=== PATIENT | female | born 1980 | race Caucasian/White ===

== ENCOUNTER 2017-11-06 16:55 | Emergency (ER) | payer BC, SELFPAY ==
--- NOTE | 2017-11-06 17:49 | XR_ITS ---
XR hand RT min 3V Ordering Physician: Evans Cuellar MD Patient Age: 37 years: Female HISTORY: ITS.REASON: Injury Injury to the right third finger TECHNIQUE: 3 views right hand COMPARISON :None available FINDINGS Phalanx with pain and swelling. No discrete fracture nor dislocation. There is pronounced flexion at the proximal IP joint of third finger in with this apparently patient could not straighten finger. L is not on the submitted images by technologist. With this the finger is optimally visualized in the frontal projection but there is no good evidence of fracture or dislocation is seen on these submitted frontal oblique or lateral view. Images. There is suggestion of soft tissue swelling at the third finger. The fingers appear intact. Metacarpals intact. The cartilage is unremarkable. =====IMPRESSION: ======== 1. Prominent flexion at the PIP joint of the long finger. 2...Presumed the patient could not straighten finger for the frontal projection... thus frontal projection limited but show no good evidence of fracture nor dislocation.
[2017-11-06 17:51] VITALS: BP 159/100; PULSE 104; RESP 20; TEMP 37.1; O2SAT 100; BMI 30.9
--- NOTE | 2017-11-06 18:37 | HMH.EDUTC ---
[facility] [place] Disposition Clinical Impression: Finger injury Qualifiers: Encounter type: initial encounter Laterality: right Qualified Code(s): S69.91XA - Unspecified injury of right wrist, hand and finger(s), initial encounter Disposition: Still a Patient Condition on Discharge: Good Additional Instructions: Transfer to ER for further treatment and evaluation Referrals: Carlos Valderrama MD [Primary Care Provider] - Time of Disposition: 18:54 Medical Decision Making - Medical Records Medical records reviewed: Yes: I reviewed the patient's medical records. - Hasmukh Inquiry Pt receiving controlled substance: No Hasmukh was queried for this patient: No Vital Signs: 11/06/17 17:51 Temperature 98.8 F Temperature Source Temporal Artery Scan Pulse Rate [Left] 104 H Respiratory Rate 20 Blood Pressure [Left Arm] 159/100 Blood Pressure Mean [Left Arm] 119 Blood Pressure Source [Left Arm] Automatic Cuff Blood Pressure Position [Left Arm] Sitting 02 Sat by Pulse Oximetry 100 Oxygen Delivery Method Room Air Orders (Tests/Meds): ORDERS Category Date Time Status XR hand RT min 3V Stat Exams 11/06/17 17:49 Taken - Radiology Data #1 Image(s): Hand Image Reviewed: Yes I reviewed the patient's radiology image w/the ED provider Preliminary Findings: No Fracture Seen - Reevaluation(s) Time: 18:45 Reevaluation #1: Consulted with Dr Cuellar and he observed and evaluated finger and agreed that patient needed to be transfered to ER for further treatment and evaluation [facility] [place] HPI - General Stated complaint: AO 11/06/17 @ 1615 Inj to right middle finger Time Seen by Provider: 11/06/17 18:20 Mode of Arrival: Ambulatory Source of Information: Patient Limitations: No Limitations Description of Symptoms (Recalled from Triage Doc. by RN): RIGHT MIDDLE FINGER INJURY HEENT Symptoms (Recalled from RN notes): No Resp Symptoms (Recalled from RN notes): No Skin Symptoms (Recalled from RN notes): No MS Symptoms (Recalled from RN notes): Yes Functional Status (Recalled from RN notes): N - History of Present Illness Provider Complaint: Patient state that she was walking her dog earlier when her dog and another dog started to fight and it twisted her middle finger States that ever since she has been unable to straighten her middle finger States that pain and swelling has continued to get worse. State that she can move finger up and down just unable to straighten it - Related Data Allergies Allergy/AdvReac Type Severity Reaction Status Date / Time No Known Allergies Allergy Verified 11/06/17 17:54 - Worker's Comp Is this a Worker's Comp case?: No [facility] History I have reviewed the patient's past medical history: Yes Laterality Cases: Bilateral: Tonsillectomy - Social History Alcohol Intake: never - Psychiatric History Expresses thoughts of harming self/others: None Suicide Plan Description: No Plan ROS Obtained: Yes All systems reviewed & no additional complaints Physical Exam - General General appearance: alert, in no apparent distress - ENT ENT exam: Present: normal exam - Respiratory Respiratory exam: Present: normal lung sounds bilaterally. Absent: respiratory distress - Cardiovascular Cardiovascular exam: Present: regular rate - Abdominal Exam Abdominal exam: Present: soft, normal bowel sounds. Absent: distention, tenderness, guarding - Expanded Upper Extremity Exam Right Hand exam: Present: other (pain in ring finger and right middle finger bent at the joint and swollen state that she is unable to move or straighten finger) - Neurological Exam Neurological exam: Present: alert, oriented X3
--- NOTE | 2017-11-06 18:45 | ED_ITS ---
[facility] [place] Clinical Impression: Finger injury Qualifiers: Encounter type: initial encounter Laterality: right Qualified Code(s): S69.91XA - Unspecified injury of right wrist, hand and finger(s), initial encounter Disposition: Still a Patient Condition on Discharge: Good Additional Instructions: Transfer to ER for further treatment and evaluation Referrals: Carlos Valderrama MD [Primary Care Provider] - Time of Disposition: 18:54 Medical Decision Making - Medical Records Medical records reviewed: Yes: I reviewed the patient's medical records. - Hasmukh Inquiry Pt receiving controlled substance: No Hasmukh was queried for this patient: No Vital Signs: 11/06/17 17:51 Temperature 98.8 F Temperature Source Temporal Artery Scan Pulse Rate [Left] 104 H Respiratory Rate 20 Blood Pressure [Left Arm] 159/100 Blood Pressure Mean [Left Arm] 119 Blood Pressure Source [Left Arm] Automatic Cuff Blood Pressure Position [Left Arm] Sitting 02 Sat by Pulse Oximetry 100 Oxygen Delivery Method Room Air Orders (Tests/Meds): ORDERS Category Date Time Status XR hand RT min 3V Stat Exams 11/06/17 17:49 Taken - Radiology Data #1 Image(s): Hand Image Reviewed: Yes I reviewed the patient's radiology image w/the ED provider Preliminary Findings: No Fracture Seen - Reevaluation(s) Time: 18:45 Reevaluation #1: Consulted with Dr Cuellar and he observed and evaluated finger and agreed that patient needed to be transfered to ER for further treatment and evaluation [facility] [place]PI - General Stated complaint: AO 11/06/17 @ 1615 Inj to right middle finger Time Seen by Provider: 11/06/17 18:20 Mode of Arrival: Ambulatory Source of Information: Patient Limitations: No Limitations Description of Symptoms (Recalled from Triage Doc. by RN): RIGHT MIDDLE FINGER INJURY HEENT Symptoms (Recalled from RN notes): No Resp Symptoms (Recalled from RN notes): No Skin Symptoms (Recalled from RN notes): No MS Symptoms (Recalled from RN notes): Yes Functional Status (Recalled from RN notes): N - History of Present Illness Provider Complaint: Patient state that she was walking her dog earlier when her dog and another dog started to fight and it twisted her middle finger States that ever since she has been unable to straighten her middle finger States that pain and swelling has continued to get worse. State that she can move finger up and down just unable to straighten it - Related Data Allergies Allergy/AdvReac Type Severity Reaction Status Date / Time No Known Allergies Allergy Verified 11/06/17 17:54 - Worker's Comp Is this a Worker's Comp case?: No [facility] History I have reviewed the patient's past medical history: Yes Laterality Cases: Bilateral: Tonsillectomy - Social History Alcohol Intake: never - Psychiatric History Expresses thoughts of harming self/others: None Suicide Plan Description: No Plan ROS Obtained: Yes All systems reviewed & no additional complaints Physical Exam - General General appearance: alert, in no apparent distress - ENT ENT exam: Present: normal exam - Respiratory Respiratory exam: Present: normal lung sounds bilaterally. Absent: respiratory distress - Cardiovascular Cardiovascular exam: Present: regular rate - Abdominal Exam A
[2017-11-06 18:50] VITALS: BP 169/101; PULSE 89; RESP 18; TEMP 36.6; O2SAT 97; BMI 29.9
--- NOTE | 2017-11-06 19:06 | PC.NURSE ---
speaking with the intake nurse for Natalya
--- NOTE | 2017-11-06 19:12 | HMH.EDUPEXT ---
ED Disposition Clinical Impression: Injury of ligament of right hand Disposition: Home, Self-Care Condition on Discharge: Good Instructions: DI for Ligament Sprains Additional Instructions: Please follow-up with Dr. Edouard at the office at 9 AM, tomorrow, fasting. Referrals: Stephanie Edouard [Referring] - - Critical Care Critical Care Time: No Attestation: On 11/06/17, the high probability of a clinically significant, sudden or life threatening deterioration of the following system(s) required my full and direct attention, intervention and personal management. The time I documented below is in addition to time spent performing reported procedures but includes the following listed in this critical care notation. Medical Decision Making - Medical Records Medical records reviewed: Yes: I reviewed the patient's medical records. - Hasmukh Inquiry Pt receiving controlled substance: No Vital Signs: 11/06/17 17:51 11/06/17 18:50 Temperature 98.8 F 97.8 F Temperature Source Temporal Artery Scan Oral Pulse Rate [Left] 104 H 89 Respiratory Rate 20 18 Blood Pressure [Left Arm] 159/100 169/101 Blood Pressure Mean [Left Arm] 119 123 Blood Pressure Source [Left Arm] Automatic Cuff Automatic Cuff Blood Pressure Position [Left Arm] Sitting Sitting 02 Sat by Pulse Oximetry 100 97 Oxygen Delivery Method Room Air Room Air Orders (Tests/Meds): ED MEDICATIONS Discontinued Medications Generic Name Dose Route Start Last Admin Trade Name Freq PRN Reason Stop Dose Admin Tramadol HCl 1 mily 11/06/17 19:20 Ultram Take Home Pack 50mg (10) PO 11/06/17 19:21 ONCE ONE ORDERS Category Date Time Status XR hand RT min 3V Stat Exams 11/06/17 17:49 Taken - Radiology Data #1 Image(s): Hand (right hand) Image Reviewed: Yes I reviewed the patient's radiology results, Yes I reviewed the patient's radiology image w/the ED provider Preliminary Findings: Normal/NAD no acute fracture - Physician Consults Physician Consulted: Dr Edouard Time: 19:15 Reason -: Pt condition, Orthopedic Eval/Care Comment/Response: Discussed with Lianet at [employer], who paged Dr. Stephanie Edouard's intake nurse, Shira. Shira, advise of patient's findings and treatment so far, agreeable with patient being seen at the office at 9 AM tomorrow morning, fasting. - Reevaluation(s) Time: 19:25 Reevaluation #1: Patient appears medically stable, in minimal distress, understands instructions, as well as necessity to see the hand specialist in the morning. Upper Extremity HPI - General Chief Complaint: Extremity Injury, Upper Stated Complaint: AO 11/06/17 @ 1615 Inj to right middle finger Time Seen by Provider: 11/06/17 18:20 Mode of Arrival: Ambulatory Source of Information: Patient Limitations: No Limitations Description of Symptoms (Recalled from ER Triage Doc. by RN): RIGHT MIDDLE FINGER INJURY - History of Present Illness HPI narrative: Patient is a 37-year-old female presenting to the emergency room with right middle finger injury after breaking up a fight between her dog and 2 other dogs, around 3 PM today. Patient was holding her dog by the collar and twisted her right middle finger while trying to pull the dog from the fight with the other docs. Patient is here complaining with pain and swelling of the right third finger. MD complaint: injury to: right Onset (ago): hour(s) (4) Other Extremity Injury: Right: hand Other injuries: none Handedness: right Place: home Severity: moderate Severity scale (1-10): 4 Exacerbating factors: movement of extremity Context: injury Associated symptoms: denies other symptoms - Related Data Allergies Allergy/AdvReac Type Severity Reaction Status Date / Time No Known Allergies Allergy Verified 11/06/17 17:54 [facility] History I have reviewed the patient's past medical history: Yes Laterality Cases: Bilateral: Tonsillectomy - Social Hi
--- NOTE | 2017-11-06 19:17 | ED_ITS ---
ED Disposition Clinical Impression: Injury of ligament of right hand Disposition: Home, Self-Care Condition on Discharge: Good Instructions: DI for Ligament Sprains Additional Instructions: Please follow-up with Dr. Edouard at the office at 9 AM, tomorrow, fasting. Referrals: Stephanie Edouard [Referring] - - Critical Care Critical Care Time: No Attestation: On 11/06/17, the high probability of a clinically significant, sudden or life threatening deterioration of the following system(s) required my full and direct attention, intervention and personal management. The time I documented below is in addition to time spent performing reported procedures but includes the following listed in this critical care notation. Medical Decision Making - Medical Records Medical records reviewed: Yes: I reviewed the patient's medical records. - Hasmukh Inquiry Pt receiving controlled substance: No Vital Signs: 11/06/17 17:51 11/06/17 18:50 Temperature 98.8 F 97.8 F Temperature Source Temporal Artery Scan Oral Pulse Rate [Left] 104 H 89 Respiratory Rate 20 18 Blood Pressure [Left Arm] 159/100 169/101 Blood Pressure Mean [Left Arm] 119 123 Blood Pressure Source [Left Arm] Automatic Cuff Automatic Cuff Blood Pressure Position [Left Arm] Sitting Sitting 02 Sat by Pulse Oximetry 100 97 Oxygen Delivery Method Room Air Room Air Orders (Tests/Meds): ED MEDICATIONS Discontinued Medications Generic Name Dose Route Start Last Admin Trade Name Freq PRN Reason Stop Dose Admin Tramadol HCl 1 mily 11/06/17 19:20 Ultram Take Home Pack 50mg (10) PO 11/06/17 19:21 ONCE ONE ORDERS Category Date Time Status XR hand RT min 3V Stat Exams 11/06/17 17:49 Taken - Radiology Data #1 Image(s): Hand (right hand) Image Reviewed: Yes I reviewed the patient's radiology results, Yes I reviewed the patient's radiology image w/the ED provider Preliminary Findings: Normal/NAD no acute fracture - Physician Consults Physician Consulted: Dr Edouard Time: 19:15 Reason -: Pt condition, Orthopedic Eval/Care Comment/Response: Discussed with Lianet at [employer], who paged Dr. Stephanie Edouard's intake nurse, Shira. Shira, advise of patient's findings and treatment so far, agreeable with patient being seen at the office at 9 AM tomorrow morning, fasting. - Reevaluation(s) Time: 19:25 Reevaluation #1: Patient appears medically stable, in minimal distress, understands instructions , as well as necessity to see the hand specialist in the morning. Upper Extremity HPI - General Chief Complaint: Extremity Injury, Upper Stated Complaint: AO 11/06/17 @ 1615 Inj to right middle finger Time Seen by Provider: 11/06/17 18:20 Mode of Arrival: Ambulatory Source of Information: Patient Limitations: No Limitations Description of Symptoms (Recalled from ER Triage Doc. by RN): RIGHT MIDDLE FINGER INJURY - History of Present Illness HPI narrative: Patient is a 37-year-old female presenting to the emergency room with right middle finger injury after breaking up a fight between her dog and 2 other dogs , around 3 PM today. Patient was holding her dog by the collar and twisted her right middle finger while trying to pull the dog from the fight with the other docs. Patient is here complaining wi
[2017-11-06 19:31] VITALS: BP 160/97; PULSE 97; RESP 16; TEMP 36.8; O2SAT 98
== END 2017-11-06 19:33 | disposition home or self-care (01) ==
LOC: UTC 17:00 → ER 18:48
PROVIDERS: Emergency Provider Emergency Medicine; Family Provider Family Medicine; PCP Family Medicine
DX: S69.91XA Unspecified injury of right wrist, hand and finger(s), initial encounter (principal); Y04.0XXA Assault by unarmed brawl or fight, initial encounter; Y92.009 Unspecified place in unspecified non-institutional (private) residence as the place of occurrence of the external cause
CPT/HCPCS: 73130; 99283

== ENCOUNTER → 2018-07-02 09:55 | Outpatient (CLI) | payer BC, SELFPAY | PROVIDERS: PCP Nurse Practitioner; Visit Provider Nurse Practitioner | DX: R00.2 Palpitations (principal) | CPT/HCPCS: 93225; 93226 ==

== ENCOUNTER → 2018-07-04 13:40 | Outpatient (CLI) | payer BC, SELFPAY ==
--- NOTE | 2018-07-04 13:47 | CA_ITS ---
PROCEDURE: 2-D M-mode and color Doppler study INDICATIONS FOR THE TEST: Chest pain COPD Heart Murmur Tobacco Smoking Palpitations+ Fatigue Syncope Edema Hypertension Diabetes Mellitus Rheumatic Fever SOB RAMOS Obesity Hyperlipidemia Family History HD Additional History PATIENT INFORMATION HEIGHT: 65 WEIGHT:185 GENDER: Female B/P:120/74 2-D/M-MODE INTERPRETATION: 2-D MEASUREMENTS OBSERVED VALUES IN CMS Right Ventricular Dimension (RVDd) 1.4 Interventricular Septum (Thickness)(IVsd) 0.9 Left Ventricular Internal Dimensions(LVIDd) 4.5 Left Ventricular Posterior Wall (Thickness)(LVPWd) 0.7 Aortic Root 2.8 Aortic Cusp Separation 1.9 Left Atrial Dimensions (LAD) 2.5 2D 1. Left atrium is normal size, left ventricle is normal size, there is no concentric left ventricular hypertrophy, visually estimated ejection fraction 55% with no regional wall motion abnormality. 2. The right atrium and right ventricle are normal size and contractility. 3. The aortic, mitral and tricuspid valve are grossly normal. 4. The pulmonic valve is poorly visualized. 5. No significant pericardial effusion noted. DOPPLER INTERROGATION: Doppler interrogation of the aortic, mitral and tricuspid valvular presence of mild mitral and tricuspid regurgitation, tricuspid regurgitation jet velocity is inadequate for calculation of the right ventricular systolic pressure, diastolic parameters are within normal range. CONCLUSION: 1. Normal left ventricular size, preserved left ventricular systolic function, visually estimated ejection fraction of 55% with no regional wall motion abnormality, diastolic parameters are within normal range. 2. Mild mitral and tricuspid regurgitation of no hemodynamic significance. 3. No significant pericardial effusion noted.
[2018-07-04 16:14] LABS: Free T4 (Free Thyroxine) 0.96 ng/dl (0.76-1.46); Thyroid Stimulating Hormone 0.37 uIU/ml (0.358-3.740)
[2018-07-06 07:16] LABS: Thyroid Peroxidase Antibodies 7 IU/mL (0-34)
[2018-07-06 16:12] LABS: Thyroglobulin Level <1.0 IU/mL (0.0-0.9); Triiodothyronine (T3) Free 3.2 pg/mL (2.0-4.4)
== END ==
PROVIDERS: Nurse Practitioner; PCP Family Medicine; Visit Provider Family Medicine
DX: R42 Dizziness and giddiness (principal); R79.89 Other specified abnormal findings of blood chemistry; R00.2 Palpitations
CPT/HCPCS: 36415; 84439; 84443; 84481; 86376; 86800; 93306

== ENCOUNTER → 2018-07-28 08:09 | Outpatient (CLI) | payer BC, SELFPAY ==
[2018-07-28 08:56] LABS: Chol/HDL Ratio 3.6 (1-3.5); Cholesterol 208 mg/dL (140-200); HDL Cholesterol 57 mg/dL (29-89); LDL Cholesterol 129 mg/dL (0-130); Triglycerides 111 mg/dL (30-200); VLDL Cholesterol 22 mg/dL (0-40)
== END ==
PROVIDERS: Visit Provider Family Medicine
DX: Z13.220 Encounter for screening for lipoid disorders (principal)
CPT/HCPCS: 36415; 80061

== ENCOUNTER → 2018-07-30 06:23 | Outpatient (CLI) | payer BC, SELFPAY ==
--- NOTE | 2018-07-30 07:08 | NM_ITS ---
History and Indications: Family history, palpitations, syncope. Procedure: Patient exercised on Peter protocol 9 minutes, resting heart rate was 80 bpm resting blood pressure 133/88, with exercise maximum heart rate achieved was 1 85 bpm is greater than 85% of the maximum predicted heart rate and a blood pressure was 188/86. Test was started due to shortness of breath and fatigue patient denied any complained of chest pain. Patient has good exercise capacity achieved 10.1mets of workload on treadmill, the blood pressure response to exercise was adequate. Electrocardiogram: Resting electrocardiogram showed sinus rhythm, with exercise there is less than 1.5 ST segment depression noted from the baseline EKG. The EKG portion of the exercise Myoview is negative for ischemia. Cardiac stress and resting SPECT images: Cardiac stress and resting SPECT images were obtained using technetium 99 Myoview 32.0 mCi stress and 9.9 mCi at rest. Gated SPECT further analysis of segmental wall motion and calculation of the ejection fraction also done. Cardiac stress and rest SPECT images show uniform myocardial activity without segmental perfusion abnormality, computer derived ejection fraction is over 65% with no regional wall motion abnormality, right ventricle is normal size and contractility. Conclusion: 1. The EKG portion of the exercise Myoview is negative for ischemia, patient has good exercise capacity achieved 10.1mets of workload on treadmill, the blood pressure response to exercise was adequate, there was no exercise-induced chest discomfort. 2. No scintigraphic evidence of reversible ischemia seen at this level of exercise, computer derived ejection fraction is over 65% with no regional wall motion abnormality, right ventricle is normal size and contractility. 3. Normal exercise Myoview study.
--- NOTE | 2018-07-30 07:18 | HMH.ITSHM ---
Current Home Medications as stated by this patient Emmy Meredith or event representative. []ZYRTEC MIRALAX
== END ==
PROVIDERS: PCP Family Medicine; Visit Provider Family Medicine
DX: R55 Syncope and collapse (principal); R94.31 Abnormal electrocardiogram [ECG] [EKG]; R00.2 Palpitations
CPT/HCPCS: 78452; 93017; A9502

== ENCOUNTER → 2020-01-29 19:11 | Outpatient (CLI) | payer BC, SELFPAY ==
--- NOTE | 2020-01-29 19:22 | XR_ITS ---
PROCEDURE: XR KNEE LT 3V CLINICAL INDICATION: PATIENT FELL YESTERDAY MORNING, LEFT KNEE PAIN COMPARISON: No exams were available for comparison FINDINGS: No fracture or dislocation. No lytic or blastic change. There is normal mineralization. The joint spaces are well-preserved. No significant degenerative/arthritic changes. No erosive changes evident. Other findings:None. IMPRESSION: No acute findings. Dictated by: Freddy Quintero MD 01/30/2020 08:34 Electronically signed by Freddy Quintero MD in [place] 01/30/2020 08:34
== END ==
PROVIDERS: PCP Family Medicine; Visit Provider Family Medicine
DX: M25.562 Pain in left knee (principal)
CPT/HCPCS: 73562

== ENCOUNTER → 2021-04-21 14:34 | Outpatient (CLI) | payer BC, SELFPAY ==
--- NOTE | 2021-04-21 14:45 | US_ITS ---
PROCEDURE: US THYROID CLINICAL INDICATION: LOW TSH LEVEL COMPARISON: No exams were available for comparison FINDINGS: Right lobe: 4.6 x 1.5 x 1.8 cm. There are several small hypoechoic nodules the largest in the upper pole at 4 x 2 mm Left lobe: 4.8 x 1.7 x 2.1 cm. There are at least 6 small hypoechoic nodules. The largest is in the mid polar region at 6 x 4 mm with a small peripheral solid component. Isthmus: Unremarkable Additional findings: IMPRESSION: Mildly enlarged thyroid gland with multiple small cystic areas in complex cystic areas. T rads category 2 benign appearing. Consider 12 month follow-up to confirm stability of the 6 x 4 mm nodule in the left lobe which has a small solid component Dictated by: Freddy Quintero MD 04/22/2021 12:54 Freddy Quintero MD in [facility] 04/22/2021 12:54
[2021-04-21 16:45] LABS: Thyroid Stimulating Hormone 0.34 uIU/mL (0.465-4.68)
[2021-04-23 09:44] LABS: Thyroid Peroxidase Antibodies <8 IU/mL (0-34); Triiodothyronine (T3) Total 144 ng/dL (71-180)
== END ==
PROVIDERS: PCP Family Medicine; Visit Provider Nurse Practitioner
DX: R79.89 Other specified abnormal findings of blood chemistry (principal)
CPT/HCPCS: 36415; 76536; 84439; 84443; 84480; 86376

== ENCOUNTER → 2021-05-06 06:59 | Outpatient (CLI) | payer BC, SELFPAY ==
--- NOTE | 2021-05-06 07:18 | NM_ITS ---
PROCEDURE: NM THYROID IMAGE UPTAKE CLINICAL INDICATION: HYPERTHYROIDISM,THYROID NODULE COMPARISON: US US THYROID from 04/21/2021 FINDINGS: Thyroid gland is enlarged. No hyper or hypoactive areas are demonstrated. The 7 hour uptake is 19 percent with normal 3-16 percent. The 24 hour uptake is 29 percent which is within normal limits. IMPRESSION: Slightly elevated 7 hour uptake. 24 hour image demonstrates enlarged gland with no photopenic or hyperactive areas apparent Dictated by: Freddy Quintero MD 05/07/2021 12:01 Freddy Quintero MD in [facility] 05/07/2021 12:01
== END ==
PROVIDERS: PCP Nurse Practitioner; Visit Provider Nurse Practitioner
DX: E05.90 Thyrotoxicosis, unspecified without thyrotoxic crisis or storm (principal); E04.1 Nontoxic single thyroid nodule
CPT/HCPCS: 78014; A9516

== ENCOUNTER → 2021-09-29 08:46 | Outpatient (CLI) | payer BC, SELFPAY ==
[2021-09-29 10:52] LABS: Free Thyroxine Index 2.5 ug/dL (5.93-13.13); T4 (Thyroxine) 9.1 ug/dl (5.53-11.0); Triiodothryronine (T3) Uptake 28 % (23.5-40.5)
== END ==
PROVIDERS: PCP Family Medicine; Visit Provider Nurse Practitioner
DX: E05.90 Thyrotoxicosis, unspecified without thyrotoxic crisis or storm (principal)
CPT/HCPCS: 36415; 84436; 84443; 84479

== ENCOUNTER → 2021-11-18 07:23 | Outpatient (CLI) | payer BC, SELFPAY | PROVIDERS: PCP Nurse Practitioner; Visit Provider Nurse Practitioner | DX: Z20.822 Contact with and (suspected) exposure to COVID-19 (principal) | CPT/HCPCS: C9803; U0003; U0005 ==

== ENCOUNTER → 2022-06-27 07:55 | Outpatient (CLI) | payer BC, SELFPAY ==
[2022-06-27 08:52] LABS: Influenza A, PCR Not Detected (NotDetected); Influenza B, PCR Not Detected (NotDetected)
[2022-06-27 11:06] LABS: Coronavirus 19, PCR Detected (NotDetected)
== END ==
PROVIDERS: PCP Nurse Practitioner; Visit Provider Nurse Practitioner
DX: J06.9 Acute upper respiratory infection, unspecified (principal); U07.1 COVID-19
CPT/HCPCS: C9803; U0003; U0005

== ENCOUNTER → 2022-08-16 09:42 | Outpatient (CLI) | payer BC, OTHER, SELFPAY ==
--- NOTE | 2022-08-16 09:42 | US_ITS ---
FINAL REPORT CLINICAL HISTORY: DUB, pelvic pain FINDINGS: Transvaginal sonographic images of the pelvis were obtained. The uterus measures 8.2 x 5.5 x 4.3 cm. The endometrium measures 9 mm, which is within normal limits. No uterine mass is identified. The right ovary measures 3.3 cm in length and left ovary measures 3.4 cm in length. Normal blood flow seen to the ovaries. There is an 11 mm right ovarian cyst. There is a 2.8 cm left ovarian cyst with a septum and possible soft tissue nodule. This does not appear to be a simple cyst. There is no evidence of free fluid. IMPRESSION: Left ovarian cyst with a septum and possible soft tissue nodule. Recommend follow-up in 6-8 weeks. Reviewed, Interpreted and Dictated by Steven Santacruz III, MD Transcribed by Blanca Powell Authenticated and [facility]
== END ==
PROVIDERS: PCP Nurse Practitioner; Visit Provider Nurse Practitioner
DX: N93.8 Other specified abnormal uterine and vaginal bleeding (principal); R10.2 Pelvic and perineal pain
CPT/HCPCS: 76830

== ENCOUNTER → 2023-06-12 11:40 | Outpatient (CLI) | payer BC, OTHER, SELFPAY ==
[2023-06-12 19:07] LABS: Alanine Aminotransferase 22 U/L (12-78); Albumin Level 4.2 g/dl (3.5-5.0); Albumin/Globulin Ratio 1.4 (1.1-1.8); Alkaline Phosphatase 91 U/L (38-126); Anion Gap 13.4 mEq/L (5-15); Aspartate Amino Transferase 33 U/L (14-36); Bilirubin,Total 0.2 mg/dl (0.2-1.3); Blood Urea Nitrogen 13 mg/dl (7-17); Calcium 9.4 mg/dl (8.4-10.2); Carbon Dioxide 25 mmol/L (22.0-30.0); Chloride 105 mmol/L (98-107); Estimated Glomerular Filt Rate 110 ml/min (>60); GFR (African American) 133 ML/MIN (>60); Globulin 2.9 g/dL (1.3-3.2); Glucose 101 mg/dl (74-100); Potassium 4.4 mmoL/L (3.5-5.1); Sodium 139 mmol/L (136-145); Total Protein,Serum 7.1 g/dl (6.3-8.2)
[2023-06-12 19:37] LABS: Thyroid Stimulating Hormone 0.06 uIU/mL (0.465-4.68)
[2023-06-12 19:38] LABS: Basophils % 0.3 % (0.1-2.0); Eosinophils # 0.3 K/mm3 (0.0-0.4); Eosinophils % 3.7 % (0.1-12.0); Hematocrit 37.7 % (37.0-47.0); Hemoglobin 12.4 g/dL (12.2-16.2); Lymphocytes # 2.4 K/mm3 (0.7-4.5); Mean Corpuscular HGB Conc 32.8 g/dL (31.8-35.4); Mean Corpuscular Hemoglobin 29.7 pg (27.0-31.2); Mean Corpuscular Volume 90.5 fl (81-99); Mean Platelet Volume 9.1 fl (7.4-10.4); Monocytes # 0.5 K/mm3 (0.1-1.0); Monocytes % 7.2 % (1.7-9.3); Neutrophils # 3.7 K/mm3 (1.8-7.8); Neutrophils % 53.8 % (37.0-80.0); Platelet Count 385 K/mm3 (142-424); Red Blood Count 4.16 M/mm3 (4.20-5.40); Red Cell Distribution Width 13.5 % (11.5-17.5); White Blood Count 6.8 K/mm3 (4.8-10.8)
== END ==
PROVIDERS: PCP Nurse Practitioner; Visit Provider Nurse Practitioner
DX: K92.1 Melena (principal); R10.11 Right upper quadrant pain; Z85.09 Personal history of malignant neoplasm of other digestive organs
CPT/HCPCS: 80053; 84443; 85025

== ENCOUNTER → 2023-06-13 08:22 | Outpatient (CLI) | payer BC, OTHER, SELFPAY ==
--- NOTE | 2023-06-13 08:23 | US_ITS ---
FINAL REPORT CLINICAL HISTORY: RUQ abdominal pain, hepatic cyst, history GIST FINDINGS: Ultrasound images of the right upper quadrant were obtained. The liver parenchyma is normal in echogenicity. The pancreas is partially obscured. The gallbladder is well visualized and the wall appears normal. There are no gallstones. The common duct is normal. Limited images of the right kidney are unremarkable. IMPRESSION: No acute process. Reviewed, Interpreted and Dictated by Steven Santacruz III, MD Transcribed by Angel Nguyen Authenticated and [facility]
[2023-06-13 10:08] LABS: Occult Blood,Stool Negative (Negative)
== END ==
PROVIDERS: PCP Nurse Practitioner; Visit Provider Nurse Practitioner
DX: R10.11 Right upper quadrant pain (principal); K76.89 Other specified diseases of liver; Z85.09 Personal history of malignant neoplasm of other digestive organs; K92.1 Melena
CPT/HCPCS: 76705; 82272; G0328

== ENCOUNTER 2023-10-12 15:57 | Outpatient (CLI) | payer BC, OTHER, SELFPAY ==
[2023-11-01 10:04] LABS: Miscellaneous Test SCANNED IMAGE
== END 2023-10-12 23:59 ==
LOC: LAB 15:58
PROVIDERS: PCP Nurse Practitioner; Visit Provider Nurse Practitioner
DX: Z13.79 Encounter for other screening for genetic and chromosomal anomalies (principal); E72.12 Methylenetetrahydrofolate reductase deficiency
CPT/HCPCS: 36415

== ENCOUNTER 2024-02-21 11:18 | Outpatient (CLI) | payer BC, OTHER, SELFPAY ==
[2024-02-21 21:21] LABS: Basophils % 0.5 % (0.1-2.0); Eosinophils # 0.3 K/mm3 (0.0-0.4); Eosinophils % 2.9 % (0.1-12.0); Hematocrit 41.7 % (37.0-47.0); Hemoglobin 13.6 g/dL (12.2-16.2); Lymphocytes # 2.9 K/mm3 (0.7-4.5); Lymphocytes % 32.6 % (10-50); Mean Corpuscular HGB Conc 32.6 g/dL (31.8-35.4); Mean Corpuscular Hemoglobin 29.9 pg (27.0-31.2); Mean Corpuscular Volume 91.6 fl (81-99); Monocytes # 0.5 K/mm3 (0.1-1.0); Monocytes % 5.6 % (1.7-9.3); Neutrophils # 5.1 K/mm3 (1.8-7.8); Neutrophils % 58.4 % (37.0-80.0); Platelet Count 380 K/mm3 (142-424); Red Blood Count 4.55 M/mm3 (4.20-5.40); Red Cell Distribution Width 13.9 % (11.5-17.5); White Blood Count 8.8 K/mm3 (4.8-10.8)
[2024-02-21 21:49] LABS: Alanine Aminotransferase 26 U/L (12-78); Albumin Level 4.6 g/dl (3.5-5.0); Albumin/Globulin Ratio 1.4 (1.1-1.8); Alkaline Phosphatase 73 U/L (38-126); Anion Gap 13.9 mEq/L (5-15); Aspartate Amino Transferase 29 U/L (14-36); Bilirubin,Total 0.4 mg/dl (0.2-1.3); Blood Urea Nitrogen 10 mg/dl (7-17); Calcium 9.8 mg/dl (8.4-10.2); Carbon Dioxide 26 mmol/L (22.0-30.0); Chloride 102 mmol/L (98-107); Cholesterol 270 mg/dl (140-200); Estimated Glomerular Filt Rate 91 ml/min (>60); GFR (African American) 111 ML/MIN (>60); Globulin 3.4 g/dL (1.3-3.2); Glucose 96 mg/dl (74-100); HDL Cholesterol 68 mg/dl (40-60); Potassium 3.9 mmoL/L (3.5-5.1); Sodium 138 mmol/L (136-145); Triglycerides 221 mg/dl (30-150); VLDL Cholesterol 44 mg/dL (0-40)
[2024-02-21 22:07] LABS: Free Thyroxine Index 2.5 ug/dL (5.93-13.13); T4 (Thyroxine) 9.8 ug/dl (5.53-11.0); Triiodothryronine (T3) Uptake 25 % (23.5-40.5)
[2024-02-21 22:08] LABS: Hemoglobin A1C 5.5 % (4.0-6.0)
[2024-02-21 22:38] LABS: Vitamin B12 247 pg/mL (239-931)
[2024-02-21 22:40] LABS: 25-OH Vitamin D, Total 30.6 ng/mL (30-100)
== END 2024-02-21 23:59 | disposition home or self-care (01) ==
LOC: LAB.DROPOF 02-22 11:18
PROVIDERS: PCP Nurse Practitioner; Visit Provider Nurse Practitioner
DX: E66.9 Obesity, unspecified (principal); Z68.32 Body mass index [BMI] 32.0-32.9, adult
CPT/HCPCS: 80050; 80053; 80061; 82306; 82607; 83036; 84436; 84443; 84479; 85025

== ENCOUNTER 2024-03-25 10:51 | Outpatient (CLI) | payer BC, OTHER, SELFPAY ==
[2024-03-25 18:57] LABS: Basophils # 0.1 K/mm3 (0-0.2); Basophils % 0.6 % (0.1-2.0); Eosinophils # 0.3 K/mm3 (0.0-0.4); Eosinophils % 3.1 % (0.1-12.0); Hematocrit 39.5 % (37.0-47.0); Hemoglobin 12.8 g/dL (12.2-16.2); Lymphocytes # 3.2 K/mm3 (0.7-4.5); Lymphocytes % 37.9 % (10-50); Mean Corpuscular HGB Conc 32.5 g/dL (31.8-35.4); Mean Corpuscular Hemoglobin 29.9 pg (27.0-31.2); Mean Corpuscular Volume 91.8 fl (81-99); Mean Platelet Volume 7.9 fl (7.4-10.4); Monocytes # 0.4 K/mm3 (0.1-1.0); Monocytes % 4.9 % (1.7-9.3); Neutrophils # 4.5 K/mm3 (1.8-7.8); Neutrophils % 53.5 % (37.0-80.0); Platelet Count 364 K/mm3 (142-424); Red Cell Distribution Width 13.6 % (11.5-17.5); White Blood Count 8.3 K/mm3 (4.8-10.8)
[2024-03-25 19:14] LABS: Alanine Aminotransferase 19 U/L (12-78); Albumin Level 4.2 g/dl (3.5-5.0); Albumin/Globulin Ratio 1.4 (1.1-1.8); Alkaline Phosphatase 67 U/L (38-126); Anion Gap 12.5 mEq/L (5-15); Aspartate Amino Transferase 27 U/L (14-36); Bilirubin,Total 0.4 mg/dl (0.2-1.3); Blood Urea Nitrogen 14 mg/dl (7-17); Calcium 9.2 mg/dl (8.4-10.2); Carbon Dioxide 26 mmol/L (22.0-30.0); Chloride 104 mmol/L (98-107); Estimated Glomerular Filt Rate 91 ml/min (>60); GFR (African American) 111 ML/MIN (>60); Globulin 3.1 g/dL (1.3-3.2); Glucose 99 mg/dl (74-100); Potassium 3.5 mmoL/L (3.5-5.1); Sodium 139 mmol/L (136-145); Total Protein,Serum 7.3 g/dl (6.3-8.2); Uric Acid 3.9 mg/dl (2.5-6.2)
[2024-03-25 19:21] LABS: C-Reactive Protein 3.4 mg/L (0-4)
[2024-03-25 20:10] LABS: Erythrocyte Sedimentation Rate 13 mm/hr (0-20)
[2024-03-25 21:05] LABS: Iron 77 ug/dL (37-170)
[2024-03-25 21:14] LABS: Total Iron Binding Capacity 395 ug/dL (265-497)
[2024-03-27 09:43] LABS: RA Latex Turbid. 10.9 IU/mL (<14.0)
[2024-03-27 12:36] LABS: Anti-Centromere B Antibodies <0.2 AI (0.0-0.9); Anti-DNA (DS) Ab Qn <1 IU/mL (0-9); Anti-Jo-1 <0.2 AI (0.0-0.9); Anti-Smith Antibody <0.2 AI (0.0-0.9); Antichromatin Antibodies <0.2 AI (0.0-0.9); Antiscleroderma-70 Antibodies <0.2 AI (0.0-0.9); RNP Antibodies <0.2 AI (0.0-0.9); Sjogren's Anti-SS-A <0.2 AI (0.0-0.9); Sjogren's Anti-SS-B <0.2 AI (0.0-0.9)
[2024-04-10 15:40] LABS: Antinuclear Antibodies, IFA POSITIVE
== END 2024-03-25 23:59 | disposition home or self-care (01) ==
LOC: LAB.DROPOF 03-26 10:51
PROVIDERS: PCP Nurse Practitioner; Visit Provider Nurse Practitioner
DX: R60.0 Localized edema (principal); E66.9 Obesity, unspecified; R79.89 Other specified abnormal findings of blood chemistry; Z68.31 Body mass index [BMI] 31.0-31.9, adult
CPT/HCPCS: 80053; 83540; 83550; 84550; 85025; 85651; 86038; 86140; 86225; 86235; 86431

== ENCOUNTER 2024-08-28 15:10 | Outpatient (CLI) | payer BC, OTHER, SELFPAY ==
[2024-08-28 18:24] LABS: Hemoglobin A1C 5.1 % (4.0-6.0)
[2024-08-28 18:53] LABS: Alanine Aminotransferase 18 U/L (12-78); Albumin Level 4.2 g/dl (3.5-5.0); Albumin/Globulin Ratio 1.6 (1.1-1.8); Alkaline Phosphatase 68 U/L (38-126); Anion Gap 10.4 mEq/L (5-15); Aspartate Amino Transferase 25 U/L (14-36); Bilirubin,Total 0.5 mg/dl (0.2-1.3); Blood Urea Nitrogen 11 mg/dl (7-17); Calcium 9.5 mg/dl (8.4-10.2); Carbon Dioxide 28 mmol/L (22.0-30.0); Chloride 103 mmol/L (98-107); Chol/HDL Ratio 4.3 (1-3.5); Cholesterol 194 mg/dl (140-200); Estimated Glomerular Filt Rate 91 ml/min (>60); GFR (African American) 111 ML/MIN (>60); Globulin 2.6 g/dL (1.3-3.2); Glucose 81 mg/dl (74-100); HDL Cholesterol 45 mg/dl (40-60); Potassium 3.4 mmoL/L (3.5-5.1); Sodium 138 mmol/L (136-145); Total Protein,Serum 6.8 g/dl (6.3-8.2); Triglycerides 125 mg/dl (30-150); VLDL Cholesterol 25 mg/dL (0-40)
[2024-08-28 19:05] LABS: Free T4 (Free Thyroxine) 1.33 ng/dl (0.78-2.19)
[2024-08-28 19:08] LABS: 25-OH Vitamin D, Total 38.1 ng/mL (30-100); Direct LDL Cholesterol 106.56 mg/dL (100-129)
[2024-08-28 19:23] LABS: Thyroid Stimulating Hormone 0.05 uIU/mL (0.465-4.68)
[2024-08-28 19:42] LABS: Vitamin B12 264 pg/mL (239-931)
[2024-08-30 11:26] LABS: Anti-Centromere B Antibodies <0.2 AI (0.0-0.9); Anti-DNA (DS) Ab Qn 1 IU/mL (0-9); Anti-Jo-1 <0.2 AI (0.0-0.9); Anti-Smith Antibody <0.2 AI (0.0-0.9); Antichromatin Antibodies <0.2 AI (0.0-0.9); Antiscleroderma-70 Antibodies <0.2 AI (0.0-0.9); RNP Antibodies <0.2 AI (0.0-0.9); Sjogren's Anti-SS-A <0.2 AI (0.0-0.9); Sjogren's Anti-SS-B <0.2 AI (0.0-0.9)
== END 2024-08-28 23:59 | disposition home or self-care (01) ==
LOC: LAB.DROPOF 08-29 12:20
PROVIDERS: PCP Nurse Practitioner; Visit Provider Nurse Practitioner
DX: E66.9 Obesity, unspecified (principal); R79.89 Other specified abnormal findings of blood chemistry; E78.5 Hyperlipidemia, unspecified; R76.8 Other specified abnormal immunological findings in serum
CPT/HCPCS: 80053; 80061; 82306; 82607; 83036; 84439; 84443; 86225; 86235

== ENCOUNTER 2024-09-18 09:35 | Outpatient (CLI) | payer BC, OTHER, SELFPAY ==
--- NOTE | 2024-09-18 09:39 | XR_ITS ---
FINAL REPORT CLINICAL HISTORY: .antibody level elevated...pain COMPARISON: None FINDINGS: LEFT HAND Three views demonstrate no acute fracture or dislocation. The visualized joint spaces are normally aligned. The soft tissues are unremarkable. IMPRESSION: No acute process. Reviewed, Interpreted and Dictated by Larry Copeland MD Transcribed by Marbella Dailey Authenticated and [facility]
--- NOTE | 2024-09-18 09:39 | XR_ITS ---
FINAL REPORT TECHNIQUE: Chest PA & Lateral CLINICAL HISTORY: ELEVATED ANTINUCLEAR ANTIBODY LEVEL..pain COMPARISON: None FINDINGS: 2 views of the chest were performed. The heart size is normal. The mediastinum is within normal limits. There is no acute cardiopulmonary process. There are no pleural effusions. There is no pneumothorax. The bony thorax appears intact. IMPRESSION: No acute cardiopulmonary process. Reviewed, Interpreted and Dictated by Larry Copeland MD Transcribed by Marbella Dailey Authenticated and [facility]
--- NOTE | 2024-09-18 09:39 | XR_ITS ---
FINAL REPORT CLINICAL HISTORY: antibody level elevated...pain COMPARISON: None FINDINGS: RIGHT HAND Three views demonstrate no acute fracture or dislocation. The visualized joint spaces are preserved. There is a 4 mm linear metallic density in the proximal portion of the third middle phalange. It is unclear if this is posttraumatic or postoperative. IMPRESSION: Metallic density proximal portion third middle phalange. Reviewed, Interpreted and Dictated by Larry Copeland MD Transcribed by Marbella Dailey Authenticated and [facility]
== END 2024-09-18 23:59 | disposition home or self-care (01) ==
LOC: RAD 09:36
PROVIDERS: PCP Nurse Practitioner; Visit Provider Internal Medicine Rheumatology
DX: M79.641 Pain in right hand (principal); M79.642 Pain in left hand; R07.9 Chest pain, unspecified; C49.A0 Gastrointestinal stromal tumor, unspecified site; R76.8 Other specified abnormal immunological findings in serum; H57.89 Other specified disorders of eye and adnexa; R21 Rash and other nonspecific skin eruption; Z79.899 Other long term (current) drug therapy; Z87.891 Personal history of nicotine dependence; Z98.890 Other specified postprocedural states; Z90.710 Acquired absence of both cervix and uterus; Z11.3 Encounter for screening for infections with a predominantly sexual mode of transmission
CPT/HCPCS: 71046; 73130

== ENCOUNTER 2024-12-04 10:19 | Outpatient (CLI) | payer BC, OTHER, SELFPAY ==
--- OUTSIDE RECORDS SUMMARY | 2024-12-04 10:21 | XMS_ITS | Data Portability ---
Author Organization [place] Cleve moeller, [facility] CLOSED Address [address] [facility] [address] [place] [address] Assessment Encounter Date Assessment Date Assessment LastModified by Organization Details LastModified Time 05/19/2021 05/19/2021 1. Abnormal thyroid labs - patient noted to have mildly low TSH as part of her initial evaluation prior to starting Wegovy - patient denies taking any biotin supplements - clinically appears euthyroid - will repeat thyroid function studies - ok to still proceed with starting wegovy (patient has no history of medullary thyroid cancer or pancreatitis) 2. Thyroid nodule - report demonstrated 6 x 4 mm left thyroid nodule - bedside ultrasound showed multiple cystic nodules, none meeting criteria for FNA - would recommend monitoring with thyroid ultrasound in 2 years or sooner if patient developments new symptoms aamine Not available 05/19/2021 11:59:26 10/04/2021 10/04/2021 1. Abnormal thyroid function studies - patient reporting signs/symptoms consistent with hyperthyroidism - will repeat thyroid function studies today - check trab - further evaluation pending lab results aamine Not available 10/04/2021 12:23:24 Plan of Treatment Reminders Order Date Submit Date Provider Last Modified By Organization Details Last Modified Time Details Appointments None recorded. Lab T4, free, serum 2021 022 [facility], [address] [place] [address], [id number], 13:43:59 TSH, serum or plasma 2021 022 [facility], [address] [place] [address], [id number], 2 13:44:02 thyrotropin receptor Ab, QL, IA, serum 2021 022 [facility], [address] [place] [address], [id number], 2 22:40:59 T3, total, serum 2021 022 [facility], [address] [place] [address], [id number], 13:44:01 CBC w/ auto diff 2021 022 [facility], [address] [place] [address], [id number], 2 12:30:27 hepatic function panel, serum 2021 022 [facility], [address] [place] [address], [id number], 13:13:21 TSH, serum or plasma 2020 021 [facility], [address] [place] [address], [id number], 1 11:25:31 T4, free, serum 2020 021 [facility], [address] [place] [address], [id number], 11:25:30 Referral None recorded. Procedures None recorded. Surgeries None recorded. Imaging None recorded. Medication Orders None recorded. Patient TargetsNo targets recorded. Patient InstructionsNo instructions recorded. Reason for Referral None Reported. Results Created Date Observation Date Name Description Value Unit Range Abnormal Flag Note LastModifiedBy Organization Detail LastModifiedTime 05/19/20 21 05/19/2021 T4,FR EE T4,free 1.30 NG/dL 0.93-1 .70 normal Not Available [facility] [address] [place] [address], [id number], 05/19/2021 11:25:30 05/19/20 21 05/19/2021 TSH TSH 0.250 uIU/m L 0.270- 4.200 low Not Available [facility] [address] [place] [address], [id number], 05/19/2021 11:25:31 10/04/19 22 10/04/2021 COMPL ETE BLOOD COUNT white blood cells 7.2 K/uL 3.8-10 .8 normal Not Available [facility] [address] [place] [address], [id number], 10/04/2021 12:30:27 10/04/19 22 10/04/2021 COMPL ETE BLOOD COUNT red blood cells 4.17 M/uL 3.80-5 .20 normal Not Available [facility] [address] [place] [address], [id number], 10/04/2021 12:30:27 10/04/19 22 10/04/2021 COMPL ETE BLOOD COUNT hemoglobin 12.3 g/dL 12.0-1 6.0 normal Not Available [facility] [address] [place] [address], [id number], 10/04/2021 12:30:27 10/04/19 22 10/04/2021 COMPL ETE BLOOD COUNT hematocrit 36.5 % 35.0-4 7.0 normal Not Available [facility] [address] [place] [address], [id number], 10/04/2021 12:30:27 10/04/19 22 10/04/2021 COMPL ETE BLOOD COUNT MCV 88 fL 80-100 normal Not Available [facility] [address] [place] [address], [id number], 10/04/2021 12:30:27 10/04/19 22 10/04/2021 COMPL ETE BLOOD COUNT MCH 30 pg 26-35 normal Not Available [facility] [address] [place] [address], [id number], 10/04/2021 12:30:27 10/04/19 22 10/04/2021 COMPL ETE BLOOD COUNT MCHC 34 g/dL 32-36 normal Not Available [facility] [address] [place] [address], [id number], 10/04/2021 12:30:27 10/04/19 22 10/04/2021 COMPL ETE BLOOD COUNT RDW 13.7 % 11.0-1 5.0 normal Not Available [facility] [address] [place] [address], [id number], 10/04/2021 12:30:27 10/04/19 22 10/04/2021 COMPL ETE BLOOD COUNT MPV 6.5 fL 6.2-10 .5 normal Not Available [facility] [address] [place] [address], [id number], 10/04/2021 12:30:27 10/04/19 22 10/04/2021 COMPL ETE BLOOD COUNT platelet count 367 K/uL 130-40 0 normal Not Available [facility] [address] [place] [address], [id number], 10/04/2021 12:30:27 10/04/19 22 10/04/2021 COMPL ETE BLOOD COUNT neutrophil,a bsolute 4.1 K/uL 1.6-8. 4 normal Not Available [facility] [address] [place] [address], [id number], 10/04/2021 12:30:27 10/04/19 22 10/04/2021 COMPL ETE BLOOD COUNT lymphocyte,a bsolute 2.4 K/uL 0.4-5. 1 normal Not Available [facility] [address] [place] [address], [id number], 10/04/2021 12:30:27 10/04/19 22 10/04/2021 COMPL ETE BLOOD COUNT monocyte,abs olute 0.5 K/uL 0.0-1. 2 normal Not Available [facility] [address] [place] [address], [id number], 10/04/2021 12:30:27 10/04/19 22 10/04/2021 COMPL ETE BLOOD COUNT eosinophil,a bsolute 0.2 K/uL 0.0-0. 8 normal Not Available [facility] [address] [place] [address], [id number], 10/04/2021 12:30:27 10/04/19 22 10/04/2021 COMPL ETE BLOOD COUNT basophil,abs olute 0.0 K/uL 0.0-0. 3 normal Not Available [facility] [address] [place] [address], [address], 10/04/2021 12:30:27 10/04/19 22 10/04/2021 COMPL ETE BLOOD COUNT % neutrophils 56.2 % 42.0-7 8.0 normal Not Available [facility] [address] [place] [address], [id number], 10/04/2021 12:30:27 10/04/19 22 10/04/2021 COMPL ETE BLOOD COUNT % lymphocytes 34.0 % 11.0-4 7.0 normal Not Available [facility] [address] [place] [address], [address], 10/04/2021 12:30:27 10/04/19 22 10/04/2021 COMPL ETE BLOOD COUNT % monocytes 7.2 % 0.0-11 .0 normal Not Available [facility] [address] [place] [address], [id number], 10/04/2021 12:30:27 10/04/19 22 10/04/2021 COMPL ETE BLOOD COUNT % eosinophils 2.3 % 0.0-7. 0 normal Not Available [facility] [address] [place] [address], [id number], 10/04/2021 12:30:27 10/04/19 22 10/04/2021 COMPL ETE BLOOD COUNT % basophils 0.3 % 0.0-3. 0 normal Not Available [facility] [address] [place] [address], [address], 10/04/2021 12:30:27 10/04/19 22 10/04/2021 COMPL ETE BLOOD COUNT nucleated red cells 0.2 % 0.0-0. 9 normal Not Available [facility] [address] [place] [address], [id number], 10/04/2021 12:30:27 10/04/19 22 10/04/2021 COMPL ETE BLOOD COUNT nucleated RBCs, absolute 0.01 K/uL not estab. normal Not Available [facility] [address] [place] [address], [id number], 10/04/2021 12:30:27 10/04/19 22 10/04/2021 HEPAT IC (LIVE R) PANEL AST 24 U/L 0-32 normal Not Available [facility] [address] [place] [address], [id number], 10/04/2021 13:13:21 10/04/19 22 10/04/2021 HEPAT IC (LIVE R) PANEL ALT 31 U/L 0-33 normal Not Available [facility] [address] [place] [address], [id number], 10/04/2021 13:13:21 10/04/19 22 10/04/2021 HEPAT IC (LIVE R) PANEL alkaline phosphatase 87 U/L 30-121 normal Not Available [facility] [address] [place] [address], [id number], 10/04/2021 13:13:21 10/04/19 22 10/04/2021 HEPAT IC (LIVE R) PANEL total protein 6.7 g/dL 6.4-8. 3 normal Not Available [facility] [address] [place] [address], [id number], 10/04/2021 13:13:21 10/04/19 22 10/04/2021 HEPAT IC (LIVE R) PANEL albumin 4.4 g/dL 3.5-5. 2 normal Not Available [facility] [address] [place] [address], [address], 10/04/2021 13:13:21 10/04/19 22 10/04/2021 HEPAT IC (LIVE R) PANEL bilirubin, total 0.3 mg/dL 0.1-1. 2 normal Not Available [facility] [address] [place] [address], [id number], 10/04/2021 13:13:21 10/04/19 22 10/04/2021 HEPAT IC (LIVE R) PANEL bilirubin, direct <0.2 mg/dL 0.0-0. 3 normal Not Available [facility] [address] [place] [address], [id number], 10/04/2021 13:13:21 10/04/19 22 10/04/2021 HEPAT IC (LIVE R) PANEL bilirubin, indirect see below mg/dL _(donavon c) 0.0-1. 0 normal Unabl e to calcu late Indir ect Bilir ubin. Not Available [facility] [address] [place] [address], [id number], 10/04/2021 13:13:21 10/04/19 22 10/04/2021 T4,FR EE T4,free 1.08 NG/dL 0.93-1 .70 normal Not Available [facility] [address] [place] [address], [id number], 10/04/2021 13:43:59 10/04/19 22 10/04/2021 T3, TOTAL T3, total 119 NG/dL 80-200 normal Not Available [facility] [address] [place] [address], [id number], 10/04/2021 13:44:01 10/04/19 22 10/04/2021 TSH TSH 0.260 uIU/m L 0.270- 4.200 low Not Available [facility] [address] [place] [address], [id number], 10/04/2021 13:44:02 10/04/19 22 10/07/2021 TRAB (TSH REC. BIND. AB) trab (TSH rec. bind. Ab) 1.38 IU/L < or = 2.00 normal This test was perfo rmed using the TRAb Antib bijan BECK metho d which is stand ardiz ed again st the 1st Inter natio nal Stand manoj 90 2 and is repor dasia in Inter natio nal Units (IU/L ). The refer ence range repor dasia was estab lishe d speci fical ly for this test metho d. TEST PERFO RMED AT: [facility] [address] [facility] [place] [address] Ash MANN,PHD ,CALVIN Not Available [facility] [address] [place] [address], [id number], 10/07/2021 22:40:59 07/25/20 22 07/25/2022 TSH TSH 0.410 uIU/m L 0.270- 4.200 normal Not Available [facility] [address] [place] [address], [address], 07/25/2022 11:50:11 07/25/20 22 07/25/2022 T4,FR EE T4,free 1.04 NG/dL 0.93-1 .70 normal Not Available [facility] [address] [place] [address], [address], 07/25/2022 11:50:13 05/19/20 21 05/06/2021 NM, thyro id scan, w/ uptak e No observ ation record ed. [facility] [address], [place], [address], 05/19/2021 14:50:12 09/2905/06/2021 NM, thyro id scan, w/ uptak e No observ ation record ed. [facility] [address], [place], [address], 05/19/2021 14:50:33 Result Notes None recorded. Problems Name Problem SNOMED Code Status Onset Date Resolution Date Notes Provider Name and Address Organization Details Recorded Time Thyroid nodule 815770284 Active 021 Claritza Mark [facility] 09:19:45 Problem Notes None recorded. Procedures Surgical History Date Name Laterality Status Provider Name and Address Organization Details Recorded Time repair of small intestine completed [facility] 05/19/2021 09:21:03 procedure on ear completed [facility] 05/19/2021 09:21:13 Removal of tonsils completed [facility] 05/19/2021 09:21:25 Imaging Results Imaging Date Name Status LastModified by Organiz ation Details LastModified Time 05/06/2021 NM, thyroid scan, w/ uptake completed [facility] [address], [place], [address], 05/19/2021 14:50:12 05/06/2021 NM, thyroid scan, w/ uptake completed [facility] [address], [place], [address], 05/19/2021 14:50:33 Procedure Notes None recorded. Medical Equipment None Reported. Allergies No known drug allergies Medications Name Sig Start Date Stop Date Status Note LastModified by Organization Details LastModified Time Vitamin C 1,000 mg tablet TAKE 1 TABLET BY MOUTH TWICE DAILY 10/04 completed Not Available Not Available Not Available methylpredn isolone 4 mg tablets in a dose pack FOLLOW PACKAGE DIRECTION S 10/04 completed Not Available Not Available Not Available cholecalcif helio (vitamin D3) 1,250 mcg (50,000 unit) capsule TAKE 1 CAPSULE BY MOUTH WEEKLY ON SAME DAY EACH WEEK 10/04 completed Not Available Not Available Not Available ID NOW COVID-19 Test Kit DIRECTED active Not Available Not Available No t Available Wegovy 2.4 mg/0.75 mL subcutaneou s pen injector 10/04 completed Not Available Not Available Not Available Wegovy 0.25 mg/0.5 mL subcutaneou s pen injector 10/04 completed Not Available Not Available Not Available Vitals Date Recorded Body height Body mass index (BMI) Body weight Heart rate Systolic blood pressure Diastolic blood pressure Provider Name and Address Organization Details Last Updated DateTime 1 165.1 cm 31 kg/m2 75458.1 8 g 70 /min 130 mm[Hg] 80 mm[Hg] Claritza Flores [facility] 1 09:18:22 Date Recorded Body height Body mass index (BMI) Body weight Heart rate Systolic blood pressure Diastolic blood pressure Provider Name and Address Organization Details Last Updated DateTime 2 165.1 cm 27.4 kg/m2 12138.9 5 g 95 /min 135 mm[Hg] 101 mm[Hg] Amy Mancuso [facility] 2 11:37:27 Social History Question Answer Notes LastModified by Organizat ion Details LastModified Time Tobacco Smoking Status Former Smoker Claritza Flores [facility] 05/19/2021 09:20:42 What Is Your Level Of Alcohol Consumption? Occasional [email or web address] Information not available 05/19/2021 What Is Your Level Of Caffeine Consumption? Heavy [email or web address] Information not available 05/19/2021 Do You Use Any Illicit Or Recreational Drugs? No [email or web address] Information not available 05/19/2021 Has Tobacco Cessation Counseling Been Provided? No [email or web address] Information not available 05/19/2021 How Many Years Have You Smoked Tobacco? 15 [email or web address] Information not available 05/19/2021 Have You Recently Traveled Abroad? No [email or web address] Information not available 05/19/2021 Do You Or Have You Ever Used Any Other Forms Of Tobacco Or Nicotine? No [email or web address] Information not available 05/19/2021 Sex: Unknown Functional Status None recorded. Mental Status None recorded. Family History Relationship Description Onset Age of this Age Resolved Age Notes LastModified by Organization Details LastModified Time Mother Diabetes mellitus Not available 2020 09:20:01 Mother Hypertensive disorder [email or web address] Not available 2020 09:20:11 Medical History Condition Response Thyroid nodule mass Y Acid Reflux (GERD) Y Gynecological HistoryNo gynecological history recorded. Obstetrics History GPAL:G 0 P 0 0 0 0 Past Encounters Encounter ID Performer Location Encounter Start Date Encounter Closed Date Diagnosis/Indication Diagnosis SNOMED-CT Code Diagnosis ICD10 Code Diagnosis Note [id number] JOHN JOSHI DO [facility] [place] [address] [place] [phone] 05/19/2021 09:04:51 05/19/2021 15:17:54 Hyperthyroidism 91249602 E05.90 Thyroid nodule 115666988 E04.1 [id number] JOHN JOSHI DO [facility] [address] [place] [phone] 10/04/2021 11:15:58 10/11/2021 07:51:52 Hyperthyroidism 27390752 E05.90 Health Concerns Section Related Observation LastModified by Organization Detai ls LastModified Time None Recorded Concern Status LastModified by Organization Details LastModified Time None Recorded Advance Directives Directive None Recorded Payers Encounter Date Sequence Insurance Name Policy Number Policy Hendrix Covered Member ID Hendrix Member ID Guarantor Name 05/19/2021 1 [place] [id number] 1 Tray Hand [id number] Emmy Masoud 10/04/2021 1 [place] [id number] 1 Tray Hand [id number] Emmy Masoud Notes Date Note Type Note Provider Name and Address Organization Details Recorded Time 05/19/2021 text/html This is a 41 yea r old female with a past medical history significant for vitamin D deficiency who presented to the clinic for evaluation of abnormal thyroid labs/thyroid nodules at the request of Urszula Anaya APRN. The patient reports her abnormal thyroid labs were discovered during routine blood work prior to starting weight loss therapy with Wegovy. Outside labs 16TSH 0.292 (0.45-4.5)Thyroid ultrasound: 6 x 4 mm nodule in left lower lobe with some solid componentsUptake and scan: At 7 hours 19%, at 24 hours 29%- normal thyroid uptake The patient reports overall feeling well. She denies any fatigue, changes in vision, increase swelling in her eyes, goiter, difficulty swallowing, change in voice, palpitations, weight loss, constipation, diarrhea or lower extremity swelling. She does report occasional palpitations. She has no family history of thyroid disease or thyroid cancer. JOHN JOSHI DO [address] [place], [phone], [facility] 05/19/2021 11:59:40 10/04/2021 text/html This is a 41 yea r old female with a past medical history significant for GIST s/p resection in 2017 and vitamin D deficiency who presented to the clinic for follow up of her abnormal thyroid studies. The patient reports her abnormal thyroid labs were discovered during routine blood work prior to starting weight loss therapy with Wegovy. Outside labs 05/06TSH 0.292 (0.45-4.5)Thyroid ultrasound: 6 x 4 mm nodule in left lower lobe with some solid componentsUptake and scan: At 7 hours 19%, at 24 hours 29%- normal thyroid uptake Since her last visit on 05/19 the patient had repeat thyroid function testing which demonstrated low TSH and normal T4. Patient was to come back in 4 weeks to repeat studies with TrAB however she was lost to follow up. She states she had gone back to her provider who started her on Wegovy for weight management. She had lost 30 lbs on treatement. During routine follow up with her oncologist there was evidence her GIST tumor had recurred and there is plan for resection in two weeks. Patient will be on Imatinib lifelong. Wegovy has since been discontinued. The patient's PCP had repeated thyroid labs as noted below. Patient is no reporting thinning hair, more weight loss since stopping Wegovy and palpitations. She denies any dysphagia, proceeding illness, tenderness along her neck, tremors, diarrhea, joint pain/swelling or skin changes. She is not on biotin She has no known family history of thyroid disease. Labs 09/29/21TSH 0.10T4 9.1 (5.53 - 11) JOHN JOSHI DO [address] [place], [phone], [facility] 10/04/2021 12:23:37 OBGyn Episode No OBEpisode recorded.
[2024-12-04 10:48] LABS: Basophils % 0.6 % (0.1-2.0); Eosinophils # 0.1 K/mm3 (0.0-0.4); Eosinophils % 2.1 % (0.1-12.0); Hematocrit 38.3 % (37.0-47.0); Hemoglobin 12.2 g/dL (12.2-16.2); Lymphocytes % 29.3 % (10-50); Mean Corpuscular HGB Conc 31.9 g/dL (31.8-35.4); Mean Corpuscular Volume 87.8 fl (81-99); Mean Platelet Volume 8.2 fl (7.4-10.4); Monocytes # 0.4 K/mm3 (0.1-1.0); Monocytes % 5.4 % (1.7-9.3); Neutrophils # 4.2 K/mm3 (1.8-7.8); Neutrophils % 62.3 % (37.0-80.0); Nucleated Red Blood Cells # 0 10^3/uL; Nucleated Red Blood Cells % 0 %; Platelet Count 430 K/mm3 (142-424); Red Blood Count 4.36 M/mm3 (4.20-5.40); Red Cell Distribution Width-SD 41.8 fL; White Blood Count 6.7 K/mm3 (4.8-10.8)
[2024-12-04 11:31] LABS: Albumin Level 4.2 g/dl (3.5-5.0); Chloride 106 mmol/L (98-107); Potassium 4.3 mmoL/L (3.5-5.1); Sodium 140 mmol/L (136-145)
[2024-12-04 11:34] LABS: Alanine Aminotransferase 21 U/L (12-78); Albumin/Globulin Ratio 1.4 (1.1-1.8); Alkaline Phosphatase 83 U/L (38-126); Anion Gap 12.3 mEq/L (5-15); Aspartate Amino Transferase 25 U/L (14-36); Bilirubin,Total 0.5 mg/dl (0.2-1.3); Blood Urea Nitrogen 8 mg/dl (7-17); Carbon Dioxide 26 mmol/L (22.0-30.0); Estimated Glomerular Filt Rate 109 ml/min (>60); GFR (African American) 132 ML/MIN (>60); Glucose 91 mg/dl (74-100); Total Protein,Serum 7.2 g/dl (6.3-8.2)
--- NOTE | 2024-12-04 13:30 | US_ITS ---
PROCEDURE: US TRANSVAGINAL CLINICAL INDICATION: LLQ abdominal pain COMPARISON: US US TRANSVAGINAL from 08/16/2022 FINDINGS: Transvaginal sonographic images of the pelvis were obtained. UTERUS: The uterus is surgically absent. The vaginal cuff is intact. LEFT OVARY: 7.4cmx3.3cmx3.7cm with a volume of 46.8ml. There are 2 follicles within the ovary Follicle 1. 3.6 cm x 3.5 cm x 3.9 cm Follicle 2. 2.8 cm x 2.6 cm x 3.2 cm RIGHT OVARY: Surgically absent Doppler flow to the left ovary is seen. There is no fluid in the cul-de-sac. IMPRESSION: 1. The uterus is surgically absent. The vaginal vault is intact. 2. The right ovary is surgically absent. 3. The left ovary is enlarged and contains 2 follicles. Follicle 1 measures 3.9 cm and follicle 2 measures 3.2 cm. Suggest repeat scan in 6-8 weeks to see if these follicles resolve. 4. There is good Doppler flow to the left ovary and no evidence of torsion. 5. No fluid in the cul-de-sac. Dictated by: Guillermo Mccray MD 12/04/2024 14:11 Guillermo Mccray MD in [place] 12/04/2024 14:11
== END 2024-12-04 23:59 | disposition home or self-care (01) ==
PROVIDERS: PCP Nurse Practitioner; Visit Provider Nurse Practitioner
DX: R10.32 Left lower quadrant pain (principal)
CPT/HCPCS: 36415; 76830; 80053; 85025; 87086

== ENCOUNTER 2025-04-01 14:57 | Outpatient (CLI) | payer BC, OTHER, SELFPAY ==
--- OUTSIDE RECORDS SUMMARY | 2024-08-26 06:30 | XMS_ITS ---
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 [address] [place] [address] 08/26/2024 Lizzie Kessler Plan Of Treatment No Information Progress Notes * Santos HERRERAJuventinoB:1980 ( 45 yo F)Acc No.[id number]:08/26/2024 Progress Note Patient: Emmy Goyal Provider: Nirmal KESSLER APRN :1980 A ge:44 Y S ex:Female Date:08/26/2024 Address:[address], [facility] Subjective: * Chief Complaints: * S potting, see tel encounter * Electronic signature of Lizzie Kessler APRN on 04/01/2025 at 02:59 PM EDT Sign off status: Pending Visit Status: R /S (Rescheduled) * Provider: Nirmal KESSLER APRN Date: 0 08/26/2024 Generated for Lauro najera/Isaiah/eTransmitting on: 0 04/01/2025 02:59 PM EDT
--- OUTSIDE RECORDS SUMMARY | 2025-04-01 14:59 | XMS_ITS | Encounter Summary ---
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) Social History Tobacco Use Types Packs/Day Years Used Date Smoking Tobacco: Former Cigarettes 0.5 13.4 0 03/28/1999 - 08/09/2012 Smokeless Tobacco: Never Alcohol Use Standard Drinks/Week Comments Yes 0 (1 standard drink = 0.6 oz pur e alcohol) occasionally Sexually Active Control Partners Comments Not Currently Comments No Sex and Gender Information Value Date Recorded Sex Assigned at Not on file Legal Sex Female 6:26 AM EDT Gender Identity Not on file Sexual Orientation Not on file COVID-19 Exposure Response Date Recorded In the last month, have you been in contact with someone who was confirmed or suspected to have Coronavirus / COVID-19? No / Unsure 08/17/2021 2:24 PM EST documented as of this encounter Plan of Treatment Not on file documented as of this encounter Goals Goal Patient Goal Type Associated Problems Recent Progress Patient-Stated? 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
--- OUTSIDE RECORDS SUMMARY | 2025-04-01 14:59 | XMS_ITS | Patient Health Record ---
Author Organization [facility] Address [address] [place] [address] Care Team Providers Care Desk Top Publisher Name Role Phone Cristel Camarillo Unavailable [phone] Lizzie Kessler Unavailable [phone] ManuelMel Unavailable [phone] Allergies No Known Allergies Reason For Referral No Information Medications Medication SIG (Take, Route, Frequency, Duration) Notes Start Date End Date Status Zepbound 5 MG/0.5ML Solution Auto-injector 0.5 mL Subcutaneous Active ZyrTEC Active Sosa Active Social History Tobacco Use: Social History Observation Description Date Details (start date - stop date) Former Smoker NA - NA Sex Assigned At : Social History Observation Description Sex Assigned At Female Social History Drugs/Alcohol: Social Info Question Answer Notes Drugs Have you used drugs other than those for medical reasons in the past 12 months? No Alcohol Screen Did you have a drink containing alcohol in the past year? Yes How often did you have a drink containing alcohol in the past year? Monthly or less (1 point) Points 1 Interpretation Negative Tobacco Use: Social Info Question Answer Notes Tobacco Use/Smoking Are you a former smoker Problems Problem Type SNOMED Code ICD Code Onset Dates Problem Status W/U Status Risk Notes Problem Endometriosis (439302862) Endometriosis determined by laparoscopy (N80.9) Active confirmed Problem Pain in pelvis (93805829) Pelvic pain (R10.2) Active confirmed Problem Vaginal bleeding (197482605) Vaginal bleeding (N93.9) Active confirmed Vital Signs Blood pressure diastolic 72 mm Hg 09/11/2024 Height 64 in 09/11/2024 Blood pressure systolic 116 mm Hg 09/11/2024 Weight 160.8 lbs 09/11/2024 BMI 27.6 kg/m2 09/11/2024 Encounters Encounter Location Date Provider Diagnosis [facility] [address] [place] [address] 08/22/2024 Mel Jackson [facility] [address] [place] [address] 09/11/2024 Cristel Camarillo Vaginal bleeding N93.9 Assessments Encounter Date Diagnosis (ICD Code) Assessment Notes Treatment Notes Treatment Clinical Notes Section Notes 09/11/2024 Vaginal bleeding (ICD-10 - N93.9) Normal exam today Disucussed possible atrophy/drynes s as cause for bleeding RTC PRN Plan Of Treatment No Information Insurance Providers Payer Name Payer Address Payer Phone Subscriber Number Group Number Insured Name Patient Relationship to Insured Coverage Start Date Coverage End Date [place] [employer] [address] [place] [address] [id number] Emmy Meredith Self - patient is the insured Medical (General) History Medical History History ICD Code anemia blood transfusion high cholesterol gastrointestinal stromal tumor of jejunu m endometriosis septated cyst on ovary pseudoangiomatous stromal hyperplasia ri ght breast abnormal pap HPV trichomonas Surgical History Surgery Date(Month/Year) LEEP appendectomy breast biopsy laparpscope tonsillectomy small bowel resection endometriosis zap total laparoscopic hysterectomy bilatera l salpingo-oophorectmy 06/02/2023
--- OUTSIDE RECORDS SUMMARY | 2025-04-01 14:59 | XMS_ITS | Clinical Summary ---
Author Organization [facility] Address [address] [place] [address] Care Team Providers Care Lard Tub Washer Name Role Phone Miles Valderrama MD Primary Care Provider [phone] Allergies No known active allergies Medications montelukast (SINGULAIR) 10 MG tablet Take 1 tablet by mouth Every Night. Active cetirizine (zyrTEC) 10 MG tablet Take 1 tablet by mouth Daily. Active ibuprofen (ADVIL,MOTRIN) 600 MG tablet Take 1 tablet by mouth Every 6 (Six) Hours As Needed for Mild Pain. 60 tablet 06/02/2023 9:29 AM EDT 3 Active polyethylene glycol (MiraLax) 17 GM/SCOOP powder Mix 17 g in liquid and drink by mouth Daily. Use daily for 2 weeks following surgery to prevent constipation. May hold or discontinue for loose stools. 238 g 06/02/2023 9:29 AM EDT 3 Active ketorolac (TORADOL) 10 MG tablet Take 1 tablet by mouth Every 6 (Six) Hours As Needed for Moderate Pain. Do not take with ibuprofen 20 tablet 06/02/2023 9:29 AM EDT 3 Active oxyCODONE-acetam inophen (Percocet) 5-325 MG per tabletIndication s:Status post hysterectomy Take 1-2 tablets by mouth Every 6 (Six) Hours As Needed for Moderate Pain or Severe Pain. 12 tablet 06/02/2023 9:29 AM EDT 3 Active Active Problems Problem Noted Date Diagnosed Date Status post hysterectomy 05/14/2023 Social History Tobacco Use Types Packs/Day Years Used Date Smoking Tobacco: Former Cigarettes 1 15 2 - 2016 Passive Smoke Exposure: Never Smokeless Tobacco: Never Tobacco Cessation:Counseling Given: Not Answered Alcohol Use Standard Drinks/Week Comments Yes 0 (1 standard drink = 0.6 oz pur e alcohol) twice a year Abuse Screen Answer Date Recorded Unsafe at Home or Work/School Not on file Feels Threatened by Someone? Not on file Does Anyone Keep You from Co ntacting Others or Doint Things Outside the Home? Not on file 06/06/2024 Physical Sign of Abuse Present Not on file 1 Housing Stability Answer Date Recorded Current Living Arrangements Not on file 05/21 Potentially Unsafe Housing Conditions Not on jemma e 06/06/2024 Family and Community Support Answer Armen e Recorded Help with Day-to-Day Activities Not on file 05/27/2023 Lonely or Isolated Not on file 05/27/2023 Employment Answer Date Recorded Do you want help finding or keeping work or a alpesh b? Not on file 05/27/2023 Disabilities Answer Date Recorded Concentrating, Remembering, or Making Decisions Difficulty Not on file 06/06/2024 Doing Errands Independently Difficulty Not on fi le 06/06/2024 Education Answer Date Recorded Help with school or training? Not on file Preferred Language Not on file 06/01/2024 Comments Unknown Sex and Gender Information Value Date Recorded Sex Assigned at Not on file Legal Sex Female 10:08 AM EDT Gender Identity Not on file Sexual Orientation Not on file Last Filed Vital Signs Vital Sign Reading Time Taken Comments Blood Pressure 123/74 06/02/2023 10:20 AM EDT Pulse 77 06/02/2023 10:20 AM EDT Temperature 36.1 C (97 F) 06/02/2023 9:50 AM EDT Respiratory Rate 17 06/02/2023 10:20 AM EDT Oxygen Saturation 100% 06/02/2023 10:20 AM EDT Inhaled Oxygen Concentration - - Weight 72.6 kg (160 lb) 06/02/2023 7:07 AM EDT Height 163.8 cm (5' 4.5 ) 06/02/2023 7:07 AM EDT Body Mass Index 27.04 06/02/2023 7:07 AM EDT Plan of Treatment Health Maintenance Due Date Last Done Comments Annual Gynecologic Pelvic and Breast Exam 1980 ANNUAL PHYSICAL 11/29/2017 HEPATITIS C SCREENING 11/29/2017 PT PLAN OF CARE 11/30/2017 COVID-19 Vaccine ( season) 2024 12/08/2020, 11/12/2020 MAMMOGRAM 10/07/2024 10/07/2022, 03/21, 09/28/2021, Additional history exists INFLUENZA VACCINE 05/21/2025 TDAP/TD VACCINES (3 - Td or Tdap) 01/13/2026 01/14/2016, 02/12/2010 Pneumococcal Vaccine 0-49 Aged Out No longer eligible based on patient's age to complete this topic Medical Devices Implanted Type Area Processing Mgr Device Identifier Shelf Expiration Date Model / Serial / Lot Reload Sut Endostitch [id number] 20cm Grn - [id number] Implanted:Qty: 2 on 06/02/2023 by Mel Jackson MD at [facility] Implant N/A: Abdomen COVIDIEN 11/18/2025 [id number] / / [id number] [id number] EMPLOYEE Member Subscriber Plan / Payer (Ef fective 2016-Present) Name:Emmy Meredith Relation to Subscriber:Spouse Name:TRAY HAND Date of :1981 (Home) Address: [address] [place] [address] Payer ID:[id number] (NAIC) Type:Not on file Address: [facility] [id number] [place] [id number] Advance Directives * CPR (Attempt to Resuscitate) (Latest Code Status on File) Date Activated Date Inactivated Comments 06/02/2023 9:27 AM 06/02/2023 1:32 PM Question Answer Comments Code Status (Patient has no pulse and is not breathing): CPR (Attempt to Resuscitate) Medical Interventions (Patie nt has pulse or is breathing): Full Support * CPR (Attempt to Resuscitate) Date Activated Date Inactivated Comments 06/02/2023 9:27 AM 06/02/2023 9:27 AM Question Answer Comments Code Status (Patient has no pulse and is not breathing): CPR (Attempt to Resuscitate) Medical Interventions (Patie nt has pulse or is breathing): Full Support Care Teams Lard Tub Washer Relationship Specialty Start Date End Date Miles Valderrama MD [address] [facility] [address] [facility] [address] [place] [address] PCP - General Family Medicine 11/29/17
--- OUTSIDE RECORDS SUMMARY | 2025-04-01 14:59 | XMS_ITS | Encounter Summary ---
Author Organization Healthcare Address [address] [place] [address] Care Team Providers Care Derrick Operator Name Role Phone Simon Rich MD Primary Care Provider [phone] Urszula Anaya APRN Primary Care Provider [phone] Encounter Details Date Type Department Care Team (Latest Contact Info) Description 09/16/2021 Lab Requisition [facility] [address] [place] [address] Librado Collins MD [address] [address] Gastrointestinal stromal tumor, unspecified site (CMS/HCC) Social History Tobacco Use Types Packs/Day Years Used Date Smoking Tobacco: Former Smokeless Tobacco: Never Alcohol Use Standard Drinks/Week Comments Not Currently 0 (1 standard drink = 0.6 oz pure alcohol) Alcoholic Drinks/day: Former consumption of alcohol Comments No Sex and Gender Information Value Date Recorded Sex Assigned at Not on file Legal Sex Female 6:26 PM EDT Gender Identity Not on file Sexual Orientation Not on file COVID-19 Exposure Response Date Recorded In the last month, have you been in contact with someone who was confirmed or suspected to have Coronavirus / COVID-19? No / Unsure 09/15/2021 9:25 AM EST documented as of this encounter Plan of Treatment Upcoming Encounters Date Type Department Care Team (Late st Contact Info) Description 11/20/2025 8:40 AM EDT Appointment [facility] [address] [place] [address] 11/20/2025 11:00 AM EDT Office Visit [facility] Mult[facility] On[facility] [address] [place] [address] Olivia Giordano, PLANTING MACHINE OPERATOR [address] [place] [address] documented as of this encounter Procedures Procedure Name Priority Date/Time Associated Diagnosis Comments SURGICAL PATHOLOGY CONSULT Routine 09/16/2021 3:13 PM EST Gastrointestinal stromal tumor, unspecified site (CMS/HCC) documented in this encounter Results * Surgical Pathology Consult (09/16/2021 3:13 PM EST) Case Report Sugical Pathology Consult Case: [id number] Authorizing Provider: Librado Collins MD Collected: 09/16/2021 1513 Ordering Location: [facility] Lab Received: 09/16/2021 151 Pathologist: Paris Michel MD Specimens: A) - Colon, [id number] B) - Colon, [id number] 09/17/2021 9:25 AM EST [facility] Final Diagnosis A. duodenum, submucosal lesion, biopsy ( [id number]; collection date - gastrointestinal stromal tumor (GIST); SEE NOTE. B. outside slides [id number] 1-2; collection date 03/28/17 1. appendix, excision: - Appendix with no significant pathologic abnormality; negative for tumor. 2. proximal jejunal mass, excision: - Gastrointestinal stroma tumor of jejunum, size 3.5 cm; pT2 (pTNM AJCC 8th EDITION) - All surgical margins are negative for tumor - See note and checklist below. 09/17/2021 9:25 AM EST [facility] at 0925 EST Comment A. Two small fragments of tumor, the larger of which is about 1.0 mm, are identified in the duodenal submucosal lesion which per outside immunohistochemical stain, CD117, are strongly positive. Per review of additional outside immunohistochemical stains, the malignant cells are negative for S100 and Smooth muscle actin. One mitoses is identified. Due to small amount of tumor of a larger mass, grade and risk assessment deferred to resection outside specimen B. B. Per outside immunohistochemical stains, the malignant cels are diffuse and strongly positive for CD 117, partially positive for CD34 and smooth muscle actin (focal weak staining). Ki-67 shows a low mitotic index of less than 2%. All immunohistochemical stains (case A and B) reviewed from the outside institution with properly working controls. 09/17/2021 9:25 AM EST [facility] Synoptic Checklist GASTROINTESTINAL STROMAL TUMOR (GIST): Resection GASTROINTESTINAL STROMAL TUMOR (GIST): RESECTION - B 8th Edition - Protocol posted: 10/16/2019 CLINICAL Preresection Treatment: No known preresection therapy Preresection Treatment: Previous biopsy or surgery: [id number] (submucosal duodenal biopsy) SPECIMEN Procedure: Resection Type: proximal jejunum and separate appendectomy TUMOR Tumor Site: Small intestine : Jejunum Histologic Type: Gastrointestinal stromal tumor, spindle cell type Histologic Grade: G1: Low grade; mitotic rate <= 5 / 5 mm2 Tumor Size: Greatest Dimension (Centimeters): 3.5 cm Tumor Focality: Unifocal Mitotic Rate: 1 mitoses per 5 mm2 Necrosis: Not identified Risk Assessment: Very low risk Treatment Effect: No known presurgical therapy MARGINS Margins: Uninvolved by GIST Distance of Tumor from Closest Margin: 4 mm Closest Margin: mesenteric LYMPH NODES Regional Lymph Nodes: No lymph nodes submitted or found PATHOLOGIC STAGE CLASSIFICATION (pTNM, AJCC 8th Edition) Primary Tumor (pT): pT2 ADDITIONAL FINDINGS Additional Findings: Appendix with no pathologic abnormality SPECIAL STUDIES Immunohistochemical Studies: KIT (CD117): Positive Molecular Genetic Studies: Not performed 09/17/2021 9:25 AM EST [facility] Tumor Blocks Outside case [id number] 09/17/2021 9:25 AM EST [facility] Tumor Adequacy for Ancillary Testing Adequate Tissue Present 09/17/2021 9:25 AM EST [facility] Clinical Information C49.A0 - Gastrointestinal stromal tumor, unspecified site [ICD-10-CM] 09/17/2021 9:25 AM EST [facility] Gross Description A. [id number] Received along with a corresponding pathology report from [facility] are 5 slide(s) labeled outside case: [id number] collected on 03/28/2017. B. [id number] Received along with a corresponding pathology report from [facility] are 13 slide(s) labeled outside case: [id number] collected on 03/28/2017. 09/17/2021 9:25 AM EST [facility] Tissue Colon structure / Unknown 09/16/2021 3:13 PM EST 09/16/2021 3:14 PM EST Tissue specimen (specimen) Colon structure / Unknown 09/16/2021 3:13 PM EST 09/16/2021 3:14 PM EST us Librado Collins MD LAB PATHOLOGY ORDERABLES Final R [facility] [address] [place] [address] documented in this encounter Visit Diagnoses Diagnosis Gastrointestinal stromal tumor, unspecified site (CMS/HCC) documented in this encounter Additional Health Concerns Assessment Noted Time A fall risk assessment has been complete d for the patient 09/15/2021 9:36 AM EST documented as of this encounter Care Teams Derrick Operator Relationship Specialty Start Date End Date Simon Rich MD [address] [address] PCP - General 09/15/21 10/08/23 Urszula Anaya APRN [address] [place] [address] PCP - General 10/09/23 documented as of this encounter
--- OUTSIDE RECORDS SUMMARY | 2025-04-01 14:59 | XMS_ITS | Encounter Summary ---
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 No / Unsure 12/21/2021 9:46 AM EDT documented as of this encounter Plan of Treatment Not on file documented as of this encounter Goals Goal Patient Goal Type Associated Problems Recent Progress Patient-Stated? 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
--- OUTSIDE RECORDS SUMMARY | 2025-04-01 14:59 | XMS_ITS | Encounter Summary ---
Author Organization Healthcare Address [address] [place] [address] Care Team Providers Care Electroplater Automatic Name Role Phone Cas Combs MD Primary Care Provider [phone] Simon Rich MD Primary Care Provider [phone] Urszula Anaya APRN Primary Care Provider [phone] Encounter Details Date Type Department Care Team (Late st Contact Info) Description 06/05/2018 Orders Only External Location [address] [place] [address] Provider, External Social History Tobacco Use Types Packs/Day Years Used Date Smoking Tobacco: Never Assessed Comments Unknown Sex and Gender Information Value Date Recorded Sex Assigned at Not on file Legal Sex Female 6:26 PM EDT Gender Identity Not on file Sexual Orientation Not on file documented as of this encounter Plan of Treatment Upcoming Encounters Date Type Department Care Team (Late st Contact Info) Description 11/20/2025 8:40 AM EDT Appointment [facility] [address] [place] [address] 11/20/2025 11:00 AM EDT Office [facility] Mult[facility]isciplinary Oncology Clinic [address] [place] [address] Olivia Giordano APRN [address] [place] [address] documented as of this encounter Procedures Procedure Name Priority Date/Time Associated Diagnosis Comments CT THORACIC OUTSIDE IMAGES 06/05/2018 4:28 PM EDT documented in this encounter Results * CT THORACIC OUTSIDE IMAGES (06/05/2018 4:28 PM EDT) Anatomical Region Laterality Modality Computed Tomogra phy 06/05/2018 4:28 PM EDT us External Provider IMG CT PROCEDURES Final Result documented in this encounter Visit Diagnoses Not on filedocumented in this encounter Care Teams Electroplater Automatic Relationship Specialty Start Date End Date Cas Combs MD [address] [place] [address] PCP - General 01/01/21 09/14/21 Simon Rich MD [facility] [place] [address] PCP - General 09/15/21 10/08/23 Urszula Anaya APRN [address] [place] [address] PCP - General 10/09/23 documented as of this encounter
--- OUTSIDE RECORDS SUMMARY | 2025-04-01 14:59 | XMS_ITS | Encounter Summary ---
Author Organization Healthcare Address [address] [place] [address] Care Team Providers Care System Operator Name Role Phone Cas Combs MD Primary Care Provider [phone] Simon Rich MD Primary Care Provider [phone] Urszula Anaya APRN Primary Care Provider [phone] Encounter Details Date Type Department Care Team (Late st Contact Info) Description 12/01/2017 Orders Only External Location [address] [place] [address] Provider, External Social History Tobacco Use Types [...] Info) Description 11/20/2025 8:40 AM EDT Appointment [facility] [address] [place] [address] 11/20/2025 11:00 AM EDT Office Visit [facility] Mult[facility] Oncology Clinic [address] [place] [address] Olivia Giordano APRN [address] [place] [address] documented as of this encounter Procedures Procedure Name Priority Date/Time Associated Diagnosis Comments CT OUTSIDE IMAGES 12/01/2017 2:10 PM EDT documented in this encounter Results * CT OUTSIDE IMAGES (12/01/2017 2:10 PM EDT) Anatomical Region Laterality Modality Computed Tomogra phy 12/01/2017 2:10 PM EDT us External Provider IMG CT PROCEDURES Final Result documented in this encounter Visit Diagnoses Not on filedocumented in this encounter Care Teams System Operator Relationship Specialty Start Date End Date Cas Combs MD [address] [place] [address] PCP - General 01/01/21 09/14/21 Simon Rich MD [facility] [place] [address] PCP - General 09/15/21 10/08/23 Urszula Anaya APRN [address] [place] [address] PCP - General 10/09/23 documented as of this encounter
--- OUTSIDE RECORDS SUMMARY | 2025-04-01 14:59 | XMS_ITS | Clinical Summary ---
Author Organization [facility] Address [address] [place] [address] Phone Care Team Providers Care Water/Wastewater Project Engineer Name Role Phone Minh Miller MD Unavailable [phone] Simon Rich MD Primary Care Provider [phone] Allergies No known active allergies Medications montelukast (SINGULAIR) 10 mg Oral Tablet Take 10 mg by mouth daily. 05/11/2022 Active cetirizine HCl (ZYRTEC ORAL) Take by mouth. 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 It demonstrates a lesion by the staple line of her prior resection. The lesion measures 2.6 cm. We had a long conversation regarding her treatment options. We discussed that her prior surgery did require a proximal resection just distal to the ligament of Treitz. We discussed that depending on the exact location of this lesion, it may increase the complexity of her surgery. We discussed the option of a preoperative push endoscopy to help ascertain if the lesion is located proximal or distal to the staple line. We discussed the option of having surgical oncology present at the time of surgery. We discussed the option of a referral to surgical oncology. The patient stated that she found a surgeon in [place], Dr. 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 She stated that her plan had been to see him as a second opinion. We discussed the pros and cons of traveling far from home for surgery. I encouraged the patient to reach out and do a consultation with Dr. Camarena. I provided the names of our local surgical oncologists. I answered all of her and her 's questions to their stated satisfaction. The patient may follow-up as needed with me. I encouraged her to use me as a resource if she has any questions about surgical treatment. Post-operative state 03/31/2017 Overview (03/31/2017): 03/28/17: diagnostic laparoscopy, appendectomy and small bowel resection by Dr. Bond Endometriosis 03/31/2017 Anemia due to GI blood loss 03/28/2017 Overview (03/31/2017): 03/29/17: Received one unit PRBC's Resolved Problems Problem Noted Date Diagnosed Date Resolved Date Acute GI bleeding 03/28/2017 03/31/2017 Hyponatremia 08/15/2012 03/28/2017 Ankle fracture 05/21/2010 03/28/2017 Immunizations Immunization Administration Dates Next Due DTaP 08/09/1985, 3,1981,1981 ,1981 IPV 04/04/1986, 3,1981,1981 ,1981 MMR 07/22/1991 Measles/Rubella 05/25/1982 Mumps 07/27/1982 Tdap 02/12/2010 Tetanus, Unspecified Formulation 04/07/1994 Surgical History Surgery Date Site/Laterality Comments TONSILLECTOMY AND ADENOIDECTOMY S/P TYMPANOSTOMY TUBE PLACEMENT UPPER GASTROINTESTINAL ENDOSCOPY 08/17/2012 N/A N/A ESOPHAGOGASTRODUODENOSCOPY / COLONOSCOPY ; Surgeon: Christofer Vincent MD; Location: [facility]; Service: Endoscopy COLONOSCOPY 08/17/2012 N/A N/A Surgeon: Christofer Vincent MD; Location: [facility]; Service: Endoscopy UPPER GASTROINTESTINAL ENDOSCOPY 03/28/2017 N/A ESOPHAGOGASTRODUODENOSCOPY WITH PUSH ENTEROSCOPY with control of bleeding with biopsy; Surgeon: Zoltan Escalante DO; Location: [facility]; Service: Endoscopy LAPAROSCOPIC APPENDECTOMY 03/28/2017 N/A DIAGNOSTIC LAPAROSCOPY APPENDECTOMY SMALL BOWEL RESECTION; Surgeon: Brandon Bond DO; Location: [facility]; Service: General COLON SURGERY 03/28/2017 N/A Surgeon: Brandon Bond DO; Location: [facility]; Service: General APPENDECTOMY UPPER GASTROINTESTINAL ENDOSCOPY 07/05/2018 N/A ESOPHAGOGASTRODUODENOSCOPY with polypectomy via cold snare and COLONOSCOPYwith polypectomy via cold snare; Surgeon: Gisela Lee MD; Location: [facility]; Service: Endoscopy XR INJECT CONTRAST EXISTING TUBE 10/19/2021 XR INJECT CONTRAST EXISTING TUBE 10/19/2021 Medical History Medical History Date Comments Anemia 2012 Cancer (HCC) Family History Relation Name Status Comments Brother Alive Father Alive Mother Alive Sister Alive Social History Tobacco Use Types Packs/Day Years Used Date Smoking Tobacco: Former Cigarettes 0.5 13.4 0 03/28/1999 - 08/09/2012 Smokeless Tobacco: Never Alcohol Use Standard Drinks/Week Comments Yes 0 (1 standard drink = 0.6 oz pur e alcohol) occasionally PHQ-2 Answer Date Recorded PHQ-2 Total Score 0 08/29/2023 Sexually Active Control Partners Comments Not Currently Comments No Sex and Gender Information Value Date Recorded Sex Assigned at Not on file Legal Sex Female 6:26 AM EDT Gender Identity Not on file Sexual Orientation Not on file Obstetrics History Para Term AB IAB SAB Ectopic Multiple Livin g Live Births 2 Last Filed Vital Signs Vital Sign Reading Time Taken Comments Blood Pressure 133/90 08/29/2023 3:05 PM EST Pulse 82 08/29/2023 3:05 PM EST Temperature 36.7 C (98 F) 08/29/2023 3:05 PM EST Respiratory Rate 14 08/29/2023 3:05 PM EST Oxygen Saturation 99% 08/29/2023 3:05 PM EST Inhaled Oxygen Concentration - - Weight 79 kg (174 lb 3.2 oz) 08/29/2023 3:05 PM EST Height 165.1 cm (5' 5 ) 08/29/2023 3:05 PM EST Body Mass Index 28.99 08/29/2023 3:05 PM EST Plan of Treatment Health Maintenance Due Date Last Done Comments Annual Wellness Exam 01/18/1984 Hepatitis B Vaccine (1 of 3 - 19+ 3-dose series) 01/18/2000 HPV/Pap Cotest 2011 Cervical Cancer Screening 07/17/2015 Pap Smear 07/17/2015 07/17/2012, 06/22, 07/08/2010 COVID-19 Vaccine ( season) 2024 12/08/2020, 11/12/2020 Breast Cancer Screening 10/07/2024 10/07/19, 04/05/2022, 09/30/2021, Additional history exists Influenza Vaccine (#1) 2025 DTaP/TDaP/Td (8 - Td or Tdap) 01/13/2026 01/14/2016, 02/12/2010, 08/09/1985, Additional history exists Meningococcal B Vaccine Aged Out No l onger eligible based on patient's age to complete this topic Pneumococcal Vaccine 0-49 Aged Out No longer eligible based on patient's age to complete this topic Goals Goal Patient Goal Type Associated Problems Recent Progress Patient-Stated? Author Maintain a healthy diet, exercise regularly and maintain an ideal body weight General No Marianne Cosby, Clerical Staff Stay Tobacco Free Lifestyle No Marianne Cosby, Clerical Staff Procedures Procedure Name Priority Date/Time Associated Diagnosis Comments SAP PI DEVELOPER CYTOLOGY REPORT Routine 07/17/2012 6 :11 AM EST from Last 3 Months or Most Recently Relevant to Health Maintenance Results * SAP PI DEVELOPER CYTOLOGY REPORT (07/17/2012 6:11 AM EST) Director Dance Cytology Report PATIENT NAME:ALIA HERRERA Director Dance Cytology Report Accession Number Collected Date/Time Received Date/Time [id number] 07/17/12 06:11 EST 07/18/12 06:11 EST GY Specimen Source Specimen Vag/Cerv/Endocx?: Cervical/Endocervi donavon Statement of Adequacy Satisfactory for Evaluation. Transformation Zone Present. Diagnosis NEGATIVE FOR INTRAEPITHELIAL LESION OR MALIGNANCY. Comment The Pap Smear is a screening test that aids in the detection of cervical cancer and cancer precursors. Both false positive and false negative results can occur. The test should be used at regular intervals, and positive results should be confirmed before definitive therapy. Processed using the [employer] automated cytology screening device (Food Reporter). Education And Development Manager: IESHA JONES 07/19/2012 Completed by: DARRYL Riggs (Electronically signed by) 07/20/2012 [facility] Laboratory [facility] 07/17/2012 6:11 AM EST us Aaron Ledesma MD PATHOLOGY ORDERABLES Final Resul t Performing Organization Address City/State/[facility] Co de Phone Number [facility] [address] [place] [address] from Last 3 Months or Most Recently Relevant to Health Maintenance Insurance MIRIAM CAMPOSO [address] [address] ANTHEM PPO ANTHEM PPO Advance Directives For more information, please contact: [phone] * Full Code (Latest Code Status on File) Date Activated Date Inactivated Comments 03/28/2017 2:12 AM 03/31/2017 7:59 PM Care Teams Water/Wastewater Project Engineer Relationship Specialty Start Date End Date Simon Rich MD [address] [place] [phone] PCP - General Family Medicine 07/31/20 Minh Miller MD [address] [place] [address] [place] [address] Medical Oncologist Internal Medicine-Hematology and Oncology 08/09/19
--- OUTSIDE RECORDS SUMMARY | 2025-04-01 14:59 | XMS_ITS | Encounter Summary ---
Author Organization Healthcare Address [address] [place] [address] Care Team Providers Care Waistline Joiner Name Role Phone Cas Combs MD Primary Care Provider [phone] Simon Rich MD Primary Care Provider [phone] Urszula Anaya APRN Primary Care Provider [phone] Encounter Details Date Type Department Care Team (Late st Contact Info) Description 08/03/2020 Orders Only External Location [address] [place] [address] Provider, External Social History Tobacco Use Types [...] Info) Description 11/20/2025 8:40 AM EDT Appointment [facility] [address] [place] [address] 11/20/2025 11:00 AM EDT Office Visit [facility] Multidisciplinary Oncology Clinic [address] [place] [phone] Olivia Giordano APRN [address] [place] [address] documented as of this encounter Procedures Procedure Name Priority Date/Time Associated Diagnosis Comments CT THORACIC OUTSIDE IMAGES 08/03/2020 11:33 AM EST documented in this encounter Results * CT THORACIC OUTSIDE IMAGES (08/03/2020 11:33 AM EST) Anatomical Region Laterality Modality Computed Tomogra phy 08/03/2020 11:3 3 AM EST us External Provider IMG CT PROCEDURES Final Result documented in this encounter Visit Diagnoses Not on filedocumented in this encounter Care Teams Waistline Joiner Relationship Specialty Start Date End Date Cas Combs MD [address] [place] [address] PCP - General 01/01/21 09/14/21 Simon Rich MD [address] [place] [address] PCP - General 09/15/21 10/08/23 Urszula Anaya APRN [facility] [place] [address] PCP - General 10/09/23 documented as of this encounter
--- OUTSIDE RECORDS SUMMARY | 2025-04-01 14:59 | XMS_ITS | Encounter Summary ---
Author Organization [place] [address] Care Team Providers Care Farm Tractor Operator Name Role Phone Minh Miller MD Unavailable [phone] Simon Rich MD Primary Care Provider [phone] Encounter Details Date Type Department Care Team (Latest Contact Info) Description 08/18/2021 Lab Requisition [facility] [place] [id number] Mariia George MD [address] [place] [phone] Gastrointestinal stromal tumor of small intestine [...] Clerical Staff documented as of this encounter Procedures Procedure Name Priority Date/Time Associated Diagnosis Comments MISC AP TEST Routine 08/18/2021 2:40 PM EST Gastrointestinal stromal tumor of small intestine (HCC) documented in this encounter Results * MISC AP TEST (08/18/2021 2:40 PM EST) CASE REPORT Surgical Pathology Report Case: [id number] Authorizing Provider: Mariia George MD Collected: 08/18/2021 1440 Ordering Location: [facility] Received: 08/18/2021 1440 Pathologist: Mariia George MD Specimen: Colon, Request for cases [id number] & block 2E, [id number] slides [facility] CC. 09/15/2021 3:10 PM EST [facility] [facility] LABORATORY FINAL DIAGNOSIS Results will be scanned in this case as an addendum. 09/15/2021 3:10 PM EST [facility] at 1450 EST EMBEDDED IMAGES 09/15/2021 3:10 PM EST [facility] [employer] ADDENDUM Refer to scanned [facility] CC report. 09/15/2021 3:10 PM EST [facility] [employer] Addendum electronically signed by Mariia George MD on 09/15/2021 at 1510 EST Tissue COLON STRUCTURE / Unknown 08/18/2021 2:40 PM EST 08/18/2021 2:40 PM EST us Mariia George MD PATHOLOGY ORDERABLES Edited Resu lt - Final [facility] [address] [place] [id number] documented in this encounter Visit Diagnoses Diagnosis Gastrointestinal stromal tumor of small intestine (HCC) Neoplasm of uncertain behavior of connective and other soft tissue documented in this encounter Care Teams Farm Tractor Operator Relationship Specialty Start Date End Date Simon Rich MD [address] [place] [address] PCP - General Family Medicine 07/31/20 Minh Miller MD [address] [place] [address] Medical Oncologist Internal Medicine-Hematology and Oncology 08/09/19 documented as of this encounter
--- OUTSIDE RECORDS SUMMARY | 2025-04-01 14:59 | XMS_ITS | Clinical Summary ---
Author Organization [facility] Address [address] [place] [address] Care Team Providers Care Counter Checker Name Role Phone HéctorUrszula cavanaugh ISABEL Primary Care Provider [phone] Allergies Active Allergy Reactions Criticality Noted Date Comments Fentanyl Itching Medium 11/20/2023 Morphine Itching Medium 11/20/2023 Medications cetirizine (ZyrTEC) 10 MG tablet Take 1 tablet by mouth daily. Active Wegovy 1 MG/0.5ML solution auto-injector INJECT 1 PEN ONCE A WEEK SUBCUTANEOUSLY ON WEEKS 9-12 OF THERAPY 3 Active Singulair 10 MG tablet Take 1 tablet by mouth nightly. Active tacrolimus (Protopic) 0.03 % ointment Apply topically. 4 Active Fluticasone Propionate (FLONASE NA) Active Zepbound 5 MG/0.5ML solution auto-injector inject 1 syringe subcutaneously once a week Active Active Problems Problem Noted Date Diagnosed Date H/O malignant gastrointestinal stromal tumor (GI ST) 11/15/2023 GIST (gastrointestinal stroma tumor), malignant, colon 09/15/2021 Overview (09/15/2021): Added automatically from request for surgery [id number] Immunizations Immunization Administration Dates Next Due Hep A, Unspecified 01/14/2016 Tdap 01/14/2016 Typhoid, ViCPs 01/14/2016 Family History Medical History Relation Name Comments Colon polyps Mother Diabetes type II Mother Hypertension Mother Asthma Other Depression Other Heartburn Other Hyperlipidemia Other Relation Name Status Comments Mother Other Social History Tobacco Use Types Packs/Day Years Used Date Smoking Tobacco: Former Cigarettes 0.5 16 1 998 - 2014 Smokeless Tobacco: Never Tobacco Cessation:Counseling Given: Not Answered Alcohol Use Standard Drinks/Week Comments Not Currently 0 (1 standard drink = 0.6 oz pure alcohol) Alcoholic Drinks/day: Former consumption of alcohol PHQ-2 Answer Date Recorded Patient Health Questionnaire-2 Score 0 11/20/2024 PHQ-2A Answer Date Recorded Patient Health Questionnaire-2 Score 0 11/16/2022 Comments No Sex and Gender Information Value Date Recorded Sex Assigned at Not on file Legal Sex Female 6:26 PM EDT Gender Identity Not on file Sexual Orientation Not on file Last Filed Vital Signs Vital Sign Reading Time Taken Comments Blood Pressure 122/74 12/10/2024 2:50 PM EDT Pulse 71 12/10/2024 2:55 PM EDT Temperature 36.3 C (97.3 F) 12/10/2024 2:25 PM EDT Respiratory Rate 12 12/10/2024 2:55 PM EDT Oxygen Saturation 100% 12/10/2024 2:55 PM EDT Inhaled Oxygen Concentration - - Weight 70 kg (154 lb 5.2 oz) 12/10/2024 1:31 PM EDT Height 162.6 cm (5' 4 ) 12/10/2024 1:31 PM EDT Body Mass Index 26.49 12/10/2024 1:31 PM EDT Plan of Treatment Upcoming Encounters Date Type Department Care Team (Late st Contact Info) Description 11/20/2025 8:40 AM EDT Appointment [facility] [address] [place] [phone] 11/20/2025 11:00 AM EDT Office Visit [facility] Multidisciplinary Oncology Clinic [address] [place] [address] Olivia Giordano, DELI DEPARTMENT MANAGER [address] [place] [phone] Health Maintenance Due Date Last Done Comments CT Colonography 1981 FIT-DNA 1981 Sigmoidoscopy 1981 [facility]-HIV Screening 1981 [facility]-Hepatitis C Screening 1981 [facility]-/Child/Adol SDOH Screenings 1981 [facility]-Varicella Vaccines (1 of 2 - 13+ 2-dose series) 1994 [facility]- SDOH Screenings 1999 [facility]-Adult SDOH Screenings 1999 [facility]-Hepatitis B Vaccines (1 of 3 - 19+ 3-dose series) 01/18/2000 [facility]-Pneumococcal Vaccine: Pediatrics (0 to 5 Years) and At-Risk Patients (6 to 49 Years) (1 of 2 - PCV) 01/18/2000 [facility]-Zoster Vaccines (1 of 2) 01/18/2000 HPV Vaccines (1 - Risk 3-dose SCDM series) 01/18/2008 FIT 08/16/2013 08/16/2012, 08/15/2012 FOBT 08/16/2013 08/16/2012, 08/15/2012 [id number] Vaccine (3 - Pfizer risk series) 01/05/2021 12/08/2020, 11/12/2020 [facility]-Influenza Vaccine (#1) 2025 [facility]-Depression Screening 11/20/2025 11/20/2024, 10/19 [facility]-DTaP,Tdap,and Td Vaccines (8 - Td or Tdap) 01/13/2026 01/14/2016, 02/12/2010, 08/09/1985, Additional history exists Colonoscopy 11/18/2030 11/20/2023 [facility]-Colorectal Cancer Screening 11/18/2030 [facility]-IPV Vaccines Completed 04/04/1986, 03/1983, 1981, Additional history exists [facility]-Cervical Cancer Screening Discontinued [facility]-HPV/Cotest Discontinued 07/02/2014, 09/25/2013 [facility]-Pap Smear Discontinued 07/02/2014, 12/2013, 07/17/2012 [facility]-Hepatitis A Vaccines Aged Out 01/14/2016 No longer eligible based on patient's age to complete this topic [facility]-Obesity Intervention Completed 025, 11/15/2023, 11/16/2022 [facility]-HIB Vaccines Aged Out No longer e ligible based on patient's age to complete this topic [facility]-Rotavirus Vaccines Aged Out No lo nger eligible based on patient's age to complete this topic Goals Goal Patient Goal Type Associated Problems Recent Progress Patient-Stated? Author Autogenera dasia Goal Care Plan Autogenerated Problem No Bailey Pelayo Procedures Procedure Name Priority Date/Time Associated Diagnosis Comments COLONOSCOPY Routine 11/20/2023 8:15 AM EDT Gastrointestinal hemorrhage, unspecified gastrointestinal hemorrhage type CYTO DATA CONVERSION Routine 07/02/2014 12:00 AM EST from Last 3 Months or Most Recently Relevant to Health Maintenance Results * Colonoscopy (11/20/2023 8:15 AM EDT) Anatomical Region Laterality Modality Endoscopy Narrative 11/20/2023 8:30 AM EDT Table formatting from the original result was not included. Impression: 4 polyps in the sigmoid colon were removed with cold snare The terminal ileum appeared normal. Small hemorrhoids Recommendations Await pathology results Repeat colonoscopy in 7 years Indication Order Indication: Gastrointestinal hemorrhage, unspecified gastrointestinal hemorrhage type Medications See anesthesia record for anesthesia administered medications. Staff Staff Role Shamar King MD Proceduralist Bryant Jefferson MD Anesthesiologist Christiane Salcido, MARTIN Endo Nurse Andi Balbuena Endo Fountain Roller Assembler Steven Cote CRNA CRNA Flomenhoft, Deborah R, MD Proceduralist Preprocedure A history and physical has been performed, and patient medication allergies have been reviewed. The patient's tolerance of previous anesthesia has been reviewed. The risks and benefits of the procedure and the sedation options and risks were discussed with the patient. All questions were answered and informed consent obtained. Details of the Procedure The patient underwent monitored anesthesia care, which was administered by an anesthesia professional. The patient's blood pressure, heart rate, level of consciousness, respirations and oxygen were monitored throughout the procedure. A digital rectal exam was performed. A perianal exam was performed. The scope was introduced through the anus and advanced to the terminal ileum, 10 cm from the ileocecal valve. Retroflexion was performed in the rectum. The quality of bowel preparation was evaluated using the [place] Bowel Preparation Scale with scores of: right colon = 2, transverse colon = 2, left colon = 2. The total BBPS score was 6. Bowel prep was adequate. The patient experienced no blood loss. The procedure was not difficult. The patient tolerated the procedure well. There were no apparent adverse events. Attestation I personally performed the entire procedure Events Procedure Events Event Event Time ENDO SCOPE IN TIME 11/20/2023 7:51 AM ENDO SCOPE OUT TIME 11/20/2023 8:00 AM ENDO SCOPE IN TIME 11/20/2023 8:01 AM ENDO CECUM REACHED 11/20/2023 8:04 AM ENDO SCOPE OUT TIME 11/20/2023 8:12 AM Specimens ID Type Source Tests Collected by Time A : sigmoid polyp Tissue Sigmoid Colon SURGICAL PATHOLOGY EXAM Lianet Bowen MD 11/20/2023 0809 Findings Four sessile polyps in the sigmoid colon; performed cold snare removal The terminal ileum appeared normal. Internal small hemorrhoids Librado Collins MD GI PROCEDURE ORDERABLES Final Re sult * (ABNORMAL) Cytology (07/02/2014 12:00 AM EST) 07/02/2014 07/03/2014 12: 29 PM EST Narrative [facility] - 07/10/2014 6:43 PM EST [facility] MR #: [id number] [facility] [address] [place] [address] 1980 (Age: 34) FW Collect Date: 07/02/2014 00:00 Receipt Date: 07/03/2014 12:29 Page 1 DEPARTMENT OF PATHOLOGY AND LABORATORY MEDICINE CYTOPATHOLOGY REPORT Email: [email or web address] ATTENDING MD/Practitioner: Ivan Mondragon MD Service: OBE Location: [facility] Reported: 07/10/2014 18:43 Collected: 07/02/2014 00:00 INTERPRETATION A. THIN PREP (CERVICAL/VAGINAL): ATYPICAL SQUAMOUS CELLS, CANNOT EXCLUDE HIGH GRADE THUAN. SATISFACTORY FOR EVALUATION; ENDOCERVICAL/ TRANSFORMATION ZONE COMPONENT PRESENT. Slide scanned and imaged by [employer] Thin[employer] Imaging System with manual review of all selected parkinson. Consider diagnostic studies based on persistent abnormal Pap test findings (www.asccp.org). Electronically Signed Out DARRYL Cochran (ASCP) Harjinder Esposito MD Cervical cytology is a screening test primarily for squamous cancers and precursors and has associated false negative and positive results. New technologies such as liquid based sampling may decrease but will not eliminate all false negative results. Regular screening and follow-up of unexplained clinical signs and symptoms are recommended to minimize false negative results. Please see the ASCCP website (www.asccp.org) for followup recommendations. If HPV testing was requested, correlation with the results is suggested (please call Microbiology at [phone] for results). CLINICAL INFORMATION: Menstrual History: Cyclic Date of Last Menstrual Period: unknown Other Clinical Conditions: If ASCUS and > 24 years of age, HPV/DNA testing requested. Clinical information indicates patient has high risk factor(s). Patient has a history of previous abnormal pap Date not provided: per copkelsey 09/2013 SPECIMEN DESCRIPTION: A: THIN PREP (CERVICAL/VAGINAL) THIN PREP PROCESS CELLULAR ENHANCEMENT ICD: 795.02 (ASC-H) PAPANICOL SMEAR OF CX W/ATYPIC SQUAMOUS CELLS CANNOT EXCLUDE HIGH GRD SQUAMOUS INTRAEP LESIO V15.89 OTHER PERSONAL HISTORY PRESENT HAZARDS TO HEALTH F: A; DX IMAGE 58243, 59043 C\V (PO) SNOMED CODES: A; [id number] [id number] In cases where a pathologist has signed out the report, the service has been rendered in part by a resident. The signing pathologist has performed and is responsible for the reported pathologic evaluation. Cayetano Mondragon MD LAB PATHOLOGY ORDERABLES Final Result [facility] from Last 3 Months or Most Recently Relevant to Health Maintenance Additional Health Concerns Active Problems Noted Date Diagnosed Date Autogenerated Problem 11/21/2024 Insurance MIRIAM Care Teams Counter Checker Relationship Specialty Start Date End Date Urszula Anaya APRN [address] [place] [address] PCP - General 10/09/23
--- OUTSIDE RECORDS SUMMARY | 2025-04-01 14:59 | XMS_ITS | Clinical Summary ---
Author Organization [facility] Address [address] [place] [address] Care Team Providers Care Automatic Dispenser Mechanic Name Role Phone Unavailable Primary Care Provider Unavailabl e Source Comments [facility] is fully rolled out with thefollowing exceptions:General Clinical Research [facility] Social History Tobacco Use Types Packs/Day Years Used Date Smoking Tobacco: Never Assessed Comments Unknown Sex and Gender Information Value Date Recorded Sex Assigned at Not on file Legal Sex Female 8:17 PM EST Gender Identity Not on file Sexual Orientation Not on file Plan of Treatment Health Maintenance Due Date Last Done Comments MMR IMMUNIZATION (1 of 1 - S tandard series) 1982 DTAP/Tdap/Td IMMUNIZATION (1 - Tdap) 01/18/1988 VARICELLA IMMUNIZATION (1 of 2 - 13+ 2-dose series) 1994 HEPATITIS B IMMUNIZATION (1 of 3 - 19+ 3-dose series) 01/18/2000 HPV IMMUNIZATION (1 - 3-dose SCDM series) 01/18/2008 COVID-19 Vaccine ( - 2023-2 5 season) 2024 AMB SEASONAL FLU VACCINE (#1) 04/21/2025 HIB IMMUNIZATION Aged Out No longer e ligible based on patient's age to complete this topic IPV IMMUNIZATION Aged Out No longer e ligible based on patient's age to complete this topic MCV4 IMMUNIZATION Aged Out No longer eligible based on patient's age to complete this topic MENINGOCOCCAL B VACCINE Aged Out No l onger eligible based on patient's age to complete this topic PNEUMOCOCCAL IMMUNIZATION Aged Out No longer eligible based on patient's age to complete this topic Respiratory Syncytial Virus (RSV) <20mo Aged Out No longer eligible b ased on patient's age to complete this topic Insurance * Guarantor: Emmy Meredith Account Type Relation to Patient Date of Phone Billing Address [facility] Reference Lab Self 1980 1995 [facility] [address] [place] [address] [facility] Address: [facility] [id number] [place] [id number]
--- OUTSIDE RECORDS SUMMARY | 2025-04-01 14:59 | XMS_ITS ---
Author Organization [facility] Address [address] 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 [...] Overview (03/31/2017): 03/29/17: Received one unit PRBC's Current Treatment and Therapy Plans No current plan information found. Past Treatment and Therapy Plans Resolved Problems Problem Noted Date Diagnosed Date Resolved Date Acute GI bleeding 03/28/2017 03/31/2017 Hyponatremia 08/15/2012 03/28/2017 Ankle fracture 05/21/2010 03/28/2017
--- OUTSIDE RECORDS SUMMARY | 2025-04-01 14:59 | XMS_ITS | Encounter Summary ---
Author Organization Healthcare Address [address] [place] [address] Care Team Providers Care Calendering Machine Operator Name Role Phone Cas Combs MD Primary Care Provider [phone] Simon Rich MD Primary Care Provider [phone] Urszula Anaya APRN Primary Care Provider [phone] Encounter Details Date Type Department Care Team (Late st Contact Info) Description 08/10/2021 Orders Only External Location [address] [place] [id number] Provider, External Social History Tobacco Use Types Packs/Day Years Used Date Smoking Tobacco: Former Alcohol Use Standard Drinks/Week Comments Not Currently 0 (1 standard drink = 0.6 oz pure alcohol) Alcoholic Drinks/day: Former consumption of alcohol Comments Unknown Sex and Gender Information Value Date Recorded Sex Assigned at Not on file Legal Sex Female 6:26 PM EDT Gender Identity Not on file Sexual Orientation Not on file documented as of this encounter Plan of Treatment Upcoming Encounters Date Type Department Care Team (Late st Contact Info) Description 11/20/2025 8:40 AM EDT Appointment [facility] [address] [place] [address] 11/20/2025 11:00 AM EDT Office Visit [facility] Multidisciplinary Oncology Clinic [address] [place] [phone] Olivia Giordano, KETTLEMAN [address] [place] [address] documented as of this encounter Procedures Procedure Name Priority Date/Time Associated Diagnosis Comments CT THORACIC OUTSIDE IMAGES 08/10/2021 11:13 AM EST documented in this encounter Results * CT THORACIC OUTSIDE IMAGES (08/10/2021 11:13 AM EST) Anatomical Region Laterality Modality Computed Tomogra phy 08/10/2021 11:1 3 AM EST us External Provider IMG CT PROCEDURES Final Result documented in this encounter Visit Diagnoses Not on filedocumented in this encounter Care Teams Calendering Machine Operator Relationship Specialty Start Date End Date Cas Combs MD [address] [place] [address] PCP - General 01/01/21 09/14/21 Simon Rich MD [address] [place] [address] PCP - General 09/15/21 10/08/23 Urszula Anaya APRN [address] [place] [address] PCP - General 10/09/23 documented as of this encounter
--- OUTSIDE RECORDS SUMMARY | 2025-04-01 14:59 | XMS_ITS | Encounter Summary ---
Author Organization Healthcare Address [address] [place] [address] Care Team Providers Care Vehicle Washer Name Role Phone Cas Combs MD Primary Care Provider [phone] Simon Rich MD Primary Care Provider [phone] Urszula Anaya APRN Primary Care Provider [phone] Encounter Details Date Type Department Care Team (Late st Contact Info) Description 08/06/2019 Orders Only External Location [address] [place] [address] Provider, External Social History Tobacco Use Types [...] Info) Description 11/20/2025 8:40 AM EDT Appointment [facility] [address] [place] [address] 11/20/2025 11:00 AM EDT Office Visit [facility] Multidisciplinary Oncology Clinic [address] [place] [phone] Olivia Giordano APRN [address] [place] [address] documented as of this encounter Procedures Procedure Name Priority Date/Time Associated Diagnosis Comments CT THORACIC OUTSIDE IMAGES 08/06/2019 3:48 PM EST documented in this encounter Results * CT THORACIC OUTSIDE IMAGES (08/06/2019 3:48 PM EST) Anatomical Region Laterality Modality Computed Tomogra phy 08/06/2019 3:48 PM EST us External Provider IMG CT PROCEDURES Final Result documented in this encounter Visit Diagnoses Not on filedocumented in this encounter Care Teams Vehicle Washer Relationship Specialty Start Date End Date Cas Combs MD [address] [place] [address] PCP - General 01/01/21 09/14/21 Simon Rich MD [address] [place] [address] PCP - General 09/15/21 10/08/23 Urszula Anaya APRN [facility] [place] [address] PCP - General 10/09/23 documented as of this encounter
--- NOTE | 2025-04-01 15:00 | US_ITS ---
PROCEDURE: US TRANSVAGINAL CLINICAL INDICATION: left ovarian cyst COMPARISON: US US TRANSVAGINAL from 12/04/2024 FINDINGS: Transvaginal sonographic images of the pelvis were obtained. UTERUS: Surgically absent. Vaginal vault is intact. LEFT OVARY: [id number] with a volume of 3.1ml. Follicle 1. 1.18 cm x 0.9 cm x 1.4 cm Follicle 2. 1.3 cm x 0.5 cm x 1.2 cm this follicle appears to be collapsing. RIGHT OVARY: Surgically absent Left ovary is seen and appears normal. Doppler flow to the left ovary appears normal. There is no fluid in the cul-de-sac. IMPRESSION: 1. The uterus is surgically absent in the vaginal vault is intact. 2. The right ovary is surgically absent. The left ovary contains 2 small follicles measuring 1.4 cm and 1.2 cm. The smaller follicle appears to be collapsing. 3. Previously there were 2 follicles in the left ovary, the largest of which was 3.9 cm. These have now resolved. 4. No fluid in the cul-de-sac. Dictated by: Guillermo Mccray MD 04/01/2025 15:37 Guillermo Mccray MD in [place] 04/01/2025 15:37
--- OUTSIDE RECORDS SUMMARY | 2025-04-01 15:00 | XMS_ITS | Encounter Summary ---
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 FINAL DIAGNOSIS Results will be scanned in this case as an addendum. 09/22/2021 3:14 PM EST [facility] at 1523 EST EMBEDDED IMAGES 09/22/2021 3:14 PM EST [facility] ADDENDUM Refer to Scanned Pathology Report. 09/22/2021 3:14 PM EST [facility] Addendum electronically signed by Mariia George MD on 09/22/2021 at 1514 EST Tissue JEJUNAL STRUCTURE / Unknown 09/15/2021 3:16 PM EST 09/15/2021 3:16 PM EST us Mariia George MD PATHOLOGY ORDERABLES Edited Resu lt - Final 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 [place] [id number] Medical Oncologist Internal Medicine-Hematology and Oncology 08/09/19 documented as of this encounter
--- OUTSIDE RECORDS SUMMARY | 2025-04-01 15:00 | XMS_ITS | Encounter Summary ---
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 12/21/2021 11:50 AM EDT [facility] FINAL DIAGNOSIS Results will be scanned in this case as an addendum. 12/21/2021 11:50 AM EDT [facility] at 1144 EDT EMBEDDED IMAGES 12/21/2021 11:50 AM EDT 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
== END 2025-04-01 23:59 | disposition home or self-care (01) ==
LOC: RAD 14:58
PROVIDERS: PCP Nurse Practitioner; Visit Provider Obstetrics & Gynecology
DX: N83.02 Follicular cyst of left ovary (principal); Z90.710 Acquired absence of both cervix and uterus; Z90.721 Acquired absence of ovaries, unilateral
CPT/HCPCS: 76830